=== PATIENT | female | born 1955 | race Caucasian/White ===

== ENCOUNTER 2018-07-23 08:33 | Emergency (ER) | payer OTHER ==
--- OUTSIDE RECORDS SUMMARY | 2018-07-23 08:34 | XMS REPORT ---
:1955 Author Organization eClinicalWorks Care Team Providers Name Role Phone Evelyn Sanches Provider Role Unavailable Allergies, Adverse Reactions, Alerts Substance Reaction Event Type PCN BREATHING DIFFICULTY Drug Allergy Problems Problem Type Condition Code Onset Dates Condition Status Assessment Pain in left hip M25.552 Active Assessment Anxiety F41.9 Active Assessment Depression, unspecified depression F32.9 Active type Assessment Other chronic pain G89.29 Active Problem Hepatitis C B19.20 Active Problem Menopausal state N95.1 Active Problem Anxiety F41.9 Active Problem Depression, unspecified depression F32.9 Active type Problem Lumbar radiculopathy, acute M54.16 Active Problem OCD (obsessive compulsive disorder) F42 Active Problem Other chronic pain G89.29 Active Medications Medication Code Code Instructions Start End Date Status Dosage System Date Paxil [facility] 87244448364 20 MG Orally Active 1 tablet in Once a day the morning Celebrex ND 72924070212 200 MG Orally January 20, Active 1 capsule Once a day 2018 with food Abilify [facility] [id number] 5 MG Orally Once April 25, Active 1 tablet a day 2017 Results No Known Results Summary Purpose eClinicalWorks Submission
[2018-07-23] MEDS ORDERED: HYDROCODONE/APAP 7.5/325 MG TAB ONE (09:10)
--- NOTE | 2018-07-23 09:59 | RAD REPORT ---
EXAM DESCRIPTION: RAD - Wrist Left 3 View - 07/23/2018 9:52 am CLINICAL HISTORY: Left wrist pain status post injury FINDINGS: A mildly displaced fracture involves the distal radial metaphysis. Avulsion fracture involves the ulnar styloid process. No dislocation is seen
--- NOTE | 2018-07-23 10:09 | ER ---
Nurse's Notes [facility] Name: Nancy Dwyer Age: 63 yrs Sex: Female : 1955 Arrival Date: 07/23/2018 Time: 08:37 Bed 14 Private MD: Kristen Sanches Diagnosis: Ulnar Styloid Avulsion fracture left wrist ;Distal radius fracture Presentation: 07/23 08:46 Presenting complaint: Patient states: "I slipped and fell and caught myself with my aa5 left wrist". Pt c/o left wrist pain. Negative LOC, negative head injury. Care prior to arrival: None. Mechanism of Injury: Fall from standing position. Trauma event details: Injury occurred in the [facility], Injury occurred: July 23, 2018. 08:46 Acuity: JAKE 3 aa5 08:46 Method Of Arrival: Ambulatory aa5 09:17 Transition of care: patient was not received from another setting of care. Onset of jl7 symptoms was July 23, 2018. Risk Assessment: Do you want to hurt yourself or someone else? Patient reports no desire to harm self or others. Initial Sepsis Screen: Does the patient meet any 2 criteria? No. Patient's initial sepsis screen is negative. Does the patient have a suspected source of infection? No. Patient's initial sepsis screen is negative. Triage Assessment: 09:17 General: Appears in no apparent distress. uncomfortable, Behavior is calm, cooperative, jl7 appropriate for age. Pain: Complains of pain in left wrist. Trauma Activation: Not Applicable Physician: ED Physician; Name: ; Notified At: ; Arrived At: Physician: General Surgeon; Name: ; Notified At: ; Arrived At: Physician: Radiology; Name: ; Notified At: ; Arrived At: Physician: Respiratory; Name: ; Notified At: ; Arrived At: Physician: Lab; Name: ; Notified At: ; Arrived At: Historical: - Allergies: 08:48 PENICILLINS; aa5 - PMHx: 08:48 None; aa5 - PSHx: 08:48 neck; Carpal Tunnel Repair; back; aa5 - Immunization history:: Adult Immunizations up to date. - Social history:: Smoking status: Patient/guardian denies using tobacco. - Ebola Screening: : No symptoms or risks identified at this time. Screenin:14 Abuse screen: Denies threats or abuse. Denies injuries from another. Nutritional jl7 screening: No deficits noted. Tuberculosis screening: No symptoms or risk factors identified. Fall Risk Fall in past 12 months (25 points). Total Vasquez Fall Scale indicates Low Risk Score (25-44 pts). Fall prevention measures have been instituted. Side Rails Up X 2 Placed close to Nursing Station Frequent Obs/Assesments occuring Family Present and informed to notify staff if they need to leave bedside As available Patient and Family Educated on Fall Prevention Program and strategies. Assessment: 09:14 General: Appears in no apparent distress. uncomfortable, Behavior is calm, cooperative, jl7 appropriate for age. Pain: Complains of pain in left wrist Pain does not radiate. Pain currently is 10 out of 10 on a pain scale. Quality of pain is described as. Neuro: Level of Consciousness is awake, alert, obeys commands, Oriented to person, place, time, situation. Cardiovascular: Patient's skin is warm and dry. Pulses are 3+ in left radial artery. Respiratory: Airway is patent Respiratory effort is even, unlabored, Respiratory pattern is regular, symmetrical. Derm: Skin is pink, warm \\T\\ dry. Musculoskeletal: Capillary refill < 3 seconds, in bilateral fingers. Range of motion: limited in left wrist. 10:00 Reassessment: Patient and/or family updated on plan of care and expected duration. Pain jl7 level reassessed. Patient is alert, oriented x 3, equal unlabored respirations, skin warm/dry/pink. Patient states symptoms have improved. Vital Signs: 09:00 BP 160 / 82; Pulse 73; Resp 16; Pulse Ox 98% ; Pain 10/10; jl7 10:00 BP 145 / 80; Pulse 70; Resp 16; Pulse Ox 100% ; Pain 2/10; jl7 ED Course: 08:37 Patient arrived in ED. mr 08:38 Kristen Sanches is Private Physician. mr 08:44 Mario Lloyd, DANIEL is Primary Nurse. jl7 08:45 Arm band placed on Patient placed in an exam room, on a stretcher. aa5 08:47 Triage completed. aa5 09:00 Guille Bee PA is PHCP. jr8 09:00 Rom Blank MD is Attending Physician. jr8 09:14 Patient has correct armband on for positive identification. Bed in low position. Call jl7 light in reach. Side rails up X 1. Pulse ox on. NIBP on. 09:52 XRAY Wrist LEFT 3 view In Process Unspecified. EDID 10:08 Andrey Higginbotham MD is Referral Physician. jr8 10:27 Orthoglass splint: Sugar tong splint applied on left arm. 5 10:36 No provider procedures requiring assistance completed. Patient did not have IV access jl7 during this emergency room visit. Administered Medications: 09:10 Drug: Adrian (7.5 mg-325 mg) 1 tabs Route: PO; jl7 09:45 Follow up: Response: No adverse reaction; Pain is decreased jl7 Outcome: 10:08 Discharge ordered by . jr8 10:36 Discharged to home ambulatory, with family. jl7 10:36 Condition: stable 10:36 Discharge instructions given to patient, family, Instructed on discharge instructions, follow up and referral plans. medication usage, Demonstrated understanding of instructions, follow-up care, medications, Prescriptions given X 1. 10:36 Patient left the ED. jl7 Signatures: Dispatcher [employer] Valarie Sin Audri, RN RN Guille Herr PA PA jr8 Martinez, Maria [facility] Mario Lloyd RN RN jl7
--- NOTE | 2018-07-23 10:09 | EDPHYS ---
Physician Documentation [facility] Name: Nancy Dwyer Age: 63 yrs Sex: Female : 1955 Arrival Date: 07/23/2018 Time: 08:37 Bed 14 Private MD: Kristen Sanches ED Physician Rom Blank HPI: 07/23 09:34 This 63 yrs old Female presents to ER via Ambulatory with complaints of Fall jr8 Injury. 09:34 Details of fall: The patient fell from an upright position, while standing. Onset: The jr8 symptoms/episode began/occurred acutely, today. Associated injuries: The patient sustained left wrist. Severity of symptoms: At their worst the symptoms were moderate, in the emergency department the symptoms are unchanged. The patient has not experienced similar symptoms in the past. The patient has not recently seen a physician. Stated that she slipped and fell landing on left wrist. Pain with decreased ROM and bruising now . Historical: - Allergies: 08:48 PENICILLINS; aa5 - PMHx: 08:48 None; aa5 - PSHx: 08:48 neck; Carpal Tunnel Repair; back; aa5 - Immunization history:: Adult Immunizations up to date. - Social history:: Smoking status: Patient/guardian denies using tobacco. - Ebola Screening: : No symptoms or risks identified at this time. ROS: 09:34 Eyes: Negative for injury, pain, redness, and discharge, ENT: Negative for injury, jr8 pain, and discharge, Neck: Negative for injury, pain, and swelling, Cardiovascular: Negative for chest pain, palpitations, and edema, Respiratory: Negative for shortness of breath, cough, wheezing, and pleuritic chest pain, Abdomen/GI: Negative for abdominal pain, nausea, vomiting, diarrhea, and constipation, Back: Negative for injury and pain, Skin: Negative for injury, rash, and discoloration, Neuro: Negative for headache, weakness, numbness, tingling, and seizure. 09:34 MS/extremity: Positive for decreased range of motion, ecchymosis, pain, swelling, tenderness, of the left wrist. Exam: 09:34 Head/Face: Normocephalic, atraumatic. Eyes: Pupils equal round and reactive to light, jr8 extra-ocular motions intact. Lids and lashes normal. Conjunctiva and sclera are non-icteric and not injected. Cornea within normal limits. Periorbital areas with no swelling, redness, or edema. ENT: Nares patent. No nasal discharge, no septal abnormalities noted. Tympanic membranes are normal and external auditory canals are clear. Oropharynx with no redness, swelling, or masses, exudates, or evidence of obstruction, uvula midline. Mucous membranes moist. Neck: Trachea midline, no thyromegaly or masses palpated, and no cervical lymphadenopathy. Supple, full range of motion without nuchal rigidity, or vertebral point tenderness. No Meningismus. Chest/axilla: Normal chest wall appearance and motion. Nontender with no deformity. No lesions are appreciated. Cardiovascular: Regular rate and rhythm with a normal S1 and S2. No gallops, murmurs, or rubs. Normal PMI, no JVD. No pulse deficits. Respiratory: Lungs have equal breath sounds bilaterally, clear to auscultation and percussion. No rales, rhonchi or wheezes noted. No increased work of breathing, no retractions or nasal flaring. Abdomen/GI: Soft, non-tender, with normal bowel sounds. No distension or tympany. No guarding or rebound. No evidence of tenderness throughout. Back: No spinal tenderness. No costovertebral tenderness. Full range of motion. Skin: Warm, dry with normal turgor. Normal color with no rashes, no lesions, and no evidence of cellulitis. Neuro: Awake and alert, GCS 15, oriented to person, place, time, and situation. Cranial nerves II-XII grossly intact. Motor strength 5/5 in all extremities. Sensory grossly intact. Cerebellar exam normal. Normal gait. 09:34 Musculoskeletal/extremity: Extremities: grossly normal except: noted in the left wrist: decreased ROM, ecchymosis, pain, swelling, tenderness, ROM: full active range of motion, limited passive range of motion, limited active range of motion due to pain, limited passive range of motion due to pain, Circulation is intact in all extremities. Sensation intact. Vital Signs: 09:00 BP 160 / 82; Pulse 73; Resp 16; Pulse Ox 98% ; Pain 10/10; jl7 10:00 BP 145 / 80; Pulse 70; Resp 16; Pulse Ox 100% ; Pain 2/10; jl7 Procedures: 10:07 Splinting: Splint applied to left wrist using Orthoglass splint, applied by nurse. jr8 Examined by me, post splint application: neurovascular intact, 2+ distal pulses palpable, brisk capillary refill noted. MDM: 09:00 Patient medically screened. jr8 10:07 Data reviewed: vital signs, nurses notes, radiologic studies, plain films, and as a jr8 result, I will discharge patient. Data interpreted: Pulse oximetry: on room air is 98 %. Interpretation: normal. Counseling: I had a detailed discussion with the patient and/or guardian regarding: the historical points, exam findings, and any diagnostic results supporting the discharge/admit diagnosis, radiology results, the need for outpatient follow up, a orthopedic surgeon, to return to the emergency department if symptoms worsen or persist or if there are any questions or concerns that arise at home. 07/23 09:04 Order name: XRAY Wrist LEFT 3 view; Complete Time: 10:05 jr8 07/23 10:06 Order name: Ulnar Gutter splint; Complete Time: 10:27 jr8 07/23 10:28 Order name: Sugar Tong Forearm Splint; Complete Time: 10:28 [facility] 07/23 10:35 Order name: Sling; Complete Time: 10:35 7 Administered Medications: 09:10 Drug: [place] (7.5 mg-325 mg) 1 tabs Route: PO; 7 09:45 Follow up: Response: No adverse reaction; Pain is decreased 7 Disposition: 07/23/18 10:08 Discharged to Home. Impression: Ulnar Styloid Avulsion fracture left wrist , Distal radius fracture . - Condition is Stable. - Discharge Instructions: Wrist Fracture Treated With Immobilization. - Prescriptions for Ibuprofen 800 mg Oral Tablet - take 1 tablet by ORAL route every 12 hours As needed take with food; 20 tablet. - Medication Reconciliation Form, Thank You Letter, Antibiotic Education, Prescription Opioid Use form. - Follow up: Andrey Higginbotham MD; When: 5 - 6 days; Reason: Recheck today's complaints, Continuance of care, Re-evaluation by your physician. - Problem is new. - Symptoms have improved. Addendum: 07/25/2018 07:48 Co-signature as Attending Physician, Rom Blank MD I agree with the assessment and w a plan of care. Signatures: Dispatcher [employer] Valencia Ashby RN RN aa5 Guille Bee PA PA jr8 Valarie Heard 5 Mario Lloyd, DANIEL RN jl7 Rom Blank MD MD wa Corrections: (The following items were deleted from the chart) 07/23 10:14 10:08 07/23/2018 10:08 Discharged to Home. Impression: Ulnar Styloid Avulsion fracture jr8 left wrist . Condition is Stable. Forms are Medication Reconciliation Form, Thank You Letter, Antibiotic Education, Prescription Opioid Use. Follow up: Andrey Higginbotham; When: 5 - 6 days; Reason: Recheck today's complaints, Continuance of care, Re-evaluation by your physician. Problem is new. Symptoms have improved. jr8 10:36 10:14 07/23/2018 10:08 Discharged to Home. Impression: Ulnar Styloid Avulsion fracture jl7 left wrist ; Distal radius fracture . Condition is Stable. Discharge Instructions: Wrist Fracture Treated With Immobilization. Prescriptions for Ibuprofen 800 mg Oral Tablet - take 1 tablet by ORAL route every 12 hours As needed take with food; 20 tablet. and Forms are Medication Reconciliation Form, Thank You Letter, Antibiotic Education, Prescription Opioid Use. Follow up: Andrey Higginbotham; When: 5 - 6 days; Reason: Recheck today's complaints, Continuance of care, Re-evaluation by your physician. Problem is new. Symptoms have improved. jr8
== END 2018-07-23 10:36 | disposition home or self-care (01) ==
LOC: ER 08:33
DX: S52.612A Displaced fracture of left ulna styloid process, initial encounter for closed fracture (principal); W01.0XXA Fall on same level from slipping, tripping and stumbling without subsequent striking against object, initial encounter; Y93.9 Activity, unspecified; Y92.9 Unspecified place or not applicable; Z88.0 Allergy status to penicillin
CPT/HCPCS: 99284

== ENCOUNTER 2019-10-11 13:51 | Emergency (ER) | payer OTHER ==
--- OUTSIDE RECORDS SUMMARY | 2019-10-11 13:53 | XMS REPORT ---
:1955 Author Organization eClinicalWorks Care Team Providers Name Role Phone Teodora Sanches Provider Role Unavailable Allergies No Known Allergies Problems Problem Type Condition Code Onset Dates Condition Status Problem Other chronic pain G89.29 Active Problem Menopausal state N95.1 Active Problem OCD (obsessive compulsive disorder) F42 Active Problem Encounter for general adult medical Z00.00 Active examination without abnormal findings Problem Encounter for gynecological Z01.419 Active examination without abnormal finding Problem Screening breast examination Z12.39 Active Problem Anxiety F41.9 Active Problem Hepatitis C B19.20 Active Problem Depression, unspecified depression F32.9 Active type Problem Lumbar radiculopathy, acute M54.16 Active Medications No Known Medications Results No Known Results Summary Purpose eClinicalWorks Submission
[2019-10-11] MEDS ORDERED: dexAMETHasone 10 MG/ML VIAL ONE (14:45)
[2019-10-11] MEDS ORDERED: KETOROLAC 30 MG/ML INJ ONE (14:45)
[2019-10-11] MEDS ORDERED: METHOCARBAMOL 1,000 MG in NA CHLORIDE 0.9% 100 ML IV ONE (15:00)
--- NOTE | 2019-10-11 15:12 | RAD REPORT ---
EXAM DESCRIPTION: RAD - Thoracic Spine Ap/Lat - 10/11/2019 3:03 pm CLINICAL HISTORY: Back pain FINDINGS: No fracture or dislocation The bones are osteoporotic Mild scoliosis Moderate spondylosis involves the thoracic spine consisting of disc space narrowing and osteophytes
--- NOTE | 2019-10-11 16:09 | ER ---
Nurse's Notes [facility] Name: Nancy Dwyer Age: 64 yrs Sex: Female : 1955 Arrival Date: 10/11/2019 Time: 13:53 Bed 17 Private MD: Diagnosis: Muscle spasm of back Presentation: 10/11 13:57 Presenting complaint: Mid back pain x 5 days. Denies injury. Transition of care: hb patient was not received from another setting of care. Onset of symptoms was October 07, 2019. Risk Assessment: Do you want to hurt yourself or someone else? Patient reports no desire to harm self or others. Care prior to arrival: Medication(s) given: Tylenol at 0600, ibuprofen at 0800. 13:57 Method Of Arrival: Ambulatory 13:57 Acuity: JAKE 4 hb 14:00 Initial Sepsis Screen: Does the patient meet any 2 criteria? No. Patient's initial bp sepsis screen is negative. Does the patient have a suspected source of infection? No. Patient's initial sepsis screen is negative. Triage Assessment: 14:00 General: Appears in no apparent distress. comfortable, Behavior is calm, cooperative, bp appropriate for age. Pain: Complains of pain in back. EENT: No deficits noted. Neuro: No deficits noted. Cardiovascular: No deficits noted. Respiratory: No deficits noted. GI: No signs and/or symptoms were reported involving the gastrointestinal system. : No signs and/or symptoms were reported regarding the genitourinary system. Derm: No deficits noted. Musculoskeletal: Circulation, motion, and sensation intact. Range of motion: intact in all extremities. Historical: - Allergies: 13:58 PENICILLINS; hb - PSHx: 13:58 neck; Carpal Tunnel Repair; back; hb - Immunization history:: Adult Immunizations up to date. - Social history:: Smoking status: Patient uses tobacco products, smokes one-half pack cigarettes per day. - Ebola Screening: : No symptoms or risks identified at this time. Screenin:29 Abuse screen: Denies threats or abuse. Denies injuries from another. Nutritional bp screening: No deficits noted. Tuberculosis screening: No symptoms or risk factors identified. Fall Risk None identified. Assessment: 14:00 General: SEE TRIAGE NOTE. Neuro: No deficits noted. bp 15:00 Reassessment: PT RETURNED FROM CT. bp 16:25 Reassessment: PT D/C HOME AMBULATORY WITH FAMILY, DX WITH MUSCLE SPASM. bp Vital Signs: 13:58 BP 136 / 84; Pulse 90; Resp 16; Temp 97.7; Pulse Ox 98% on R/A; Weight 63.5 kg; Height hb 5 ft. 8 in. (172.72 cm); Pain 10/10; 15:00 BP 113 / 83; Pulse 61; Resp 16; Pulse Ox 97% ; bp 16:26 BP 103 / 57; Pulse 61; Resp 16; Pulse Ox 95% ; bp 13:58 Body Mass Index 21.29 (63.50 kg, 172.72 cm) hb ED Course: 13:53 Patient arrived in ED. mr 13:58 Triage completed. hb 13:58 Arm band placed on. hb 14:22 Guille Bee PA is PHCP. jr8 14:22 Adams Galvez MD is Attending Physician. jr8 14:27 Jac Cheney, DANIEL is Primary Nurse. bp 14:29 Patient has correct armband on for positive identification. Bed in low position. Call bp light in reach. Side rails up X2. Adult w/ patient. 15:03 XRAY Thoracic Spine (Ap/lat) In Process Unspecified. EDMS 15:16 Inserted saline lock: 22 gauge in right antecubital area, using aseptic technique. bp 16:23 No provider procedures requiring assistance completed. IV discontinued, intact, bp bleeding controlled, No redness/swelling at site. Pressure dressing applied. Administered Medications: 15:00 Drug: Decadron - Dexamethasone 10 mg Route: IVP; Site: right antecubital; bp 16:21 Follow up: Response: Pain is decreased bp 15:00 Drug: TORadol - Ketorolac 15 mg Route: IVP; Site: right antecubital; bp 16:21 Follow up: Response: Pain is decreased bp 15:00 Drug: Robaxin 1 grams Route: IVPB; Infused Over: 1 hrs; Site: right antecubital; bp 16:27 Follow up: IV Status: Completed infusion; IV Intake: 100ml bp Intake: 16:27 IV: 100ml; Total: 100ml. bp Outcome: 16:08 Discharge ordered by . jr8 16:25 Discharged to home ambulatory, with family. bp 16:25 Condition: stable 16:25 Discharge instructions given to patient, Instructed on discharge instructions, follow up and referral plans. medication usage, Demonstrated understanding of instructions, follow-up care, medications, Prescriptions given X 3. 16:27 Patient left the ED. bp Signatures: Dispatcher [employer] SHRUTHISC AntonioSuzie RohitGuille PA PA jr8 Mandy Velazco, RN RN Jac Cheney RN RN bp
--- NOTE | 2019-10-11 16:09 | EDPHYS ---
Physician Documentation [facility] Name: Nancy Dwyer Age: 64 yrs Sex: Female : 1955 Arrival Date: 10/11/2019 Time: 13:53 Bed 17 Private MD: ED Physician Adams Galvez HPI: 10/11 15:06 This 64 yrs old Female presents to ER via Ambulatory with complaints of Back jr8 Pain. 15:06 The patient presents with pain that is acute. The symptoms are located in the left mid jr8 back. Onset: The symptoms/episode began/occurred acutely, 2 day(s) ago. The pain does not radiate. Associated signs and symptoms: The patient has no apparent associated signs or symptoms. The problem was sustained from twisting. Modifying factors: The patient symptoms are alleviated by nothing, the patient symptoms are aggravated by any movement. Severity of symptoms: At their worst the symptoms were moderate, in the emergency department the symptoms are unchanged. The patient has not recently seen a physician. 15:06 Stated that she pulled her back about 2 days ago. Unrelieved with rest and OTC jr8 medication. Has done this in past but with relief. Denies numbness, tingling, weakness, or saddle anesthesia . Historical: - Allergies: 13:58 PENICILLINS; hb - PSHx: 13:58 neck; Carpal Tunnel Repair; back; hb - Immunization history:: Adult Immunizations up to date. - Social history:: Smoking status: Patient uses tobacco products, smokes one-half pack cigarettes per day. - Ebola Screening: : No symptoms or risks identified at this time. ROS: 15:06 Eyes: Negative for injury, pain, redness, and discharge, ENT: Negative for injury, jr8 pain, and discharge, Neck: Negative for injury, pain, and swelling, Cardiovascular: Negative for chest pain, palpitations, and edema, Respiratory: Negative for shortness of breath, cough, wheezing, and pleuritic chest pain, Abdomen/GI: Negative for abdominal pain, nausea, vomiting, diarrhea, and constipation, MS/Extremity: Negative for injury and deformity, Skin: Negative for injury, rash, and discoloration, Neuro: Negative for headache, weakness, numbness, tingling, and seizure. 15:06 Back: Positive for pain at rest, pain with movement. Exam: 15:06 Eyes: Pupils equal round and reactive to light, extra-ocular motions intact. Lids and jr8 lashes normal. Conjunctiva and sclera are non-icteric and not injected. Cornea within normal limits. Periorbital areas with no swelling, redness, or edema. ENT: Nares patent. No nasal discharge, no septal abnormalities noted. Tympanic membranes are normal and external auditory canals are clear. Oropharynx with no redness, swelling, or masses, exudates, or evidence of obstruction, uvula midline. Mucous membranes moist. Neck: Trachea midline, no thyromegaly or masses palpated, and no cervical lymphadenopathy. Supple, full range of motion without nuchal rigidity, or vertebral point tenderness. No Meningismus. Chest/axilla: Normal chest wall appearance and motion. Nontender with no deformity. No lesions are appreciated. Cardiovascular: Regular rate and rhythm with a normal S1 and S2. No gallops, murmurs, or rubs. Normal PMI, no JVD. No pulse deficits. Respiratory: Lungs have equal breath sounds bilaterally, clear to auscultation and percussion. No rales, rhonchi or wheezes noted. No increased work of breathing, no retractions or nasal flaring. Abdomen/GI: Soft, non-tender, with normal bowel sounds. No distension or tympany. No guarding or rebound. No evidence of tenderness throughout. Skin: Warm, dry with normal turgor. Normal color with no rashes, no lesions, and no evidence of cellulitis. MS/ Extremity: Pulses equal, no cyanosis. Neurovascular intact. Full, normal range of motion. Neuro: Awake and alert, GCS 15, oriented to person, place, time, and situation. Cranial nerves II-XII grossly intact. Motor strength 5/5 in all extremities. Sensory grossly intact. Cerebellar exam normal. Normal gait. 15:06 Back: pain, that is moderate, of the left mid back, ROM is painful, normal spinal alignment noted, CVA tenderness, is absent, vertebral tenderness, is appreciated at T9, muscle spasm, is appreciated in the left low back and left mid back. Vital Signs: 13:58 BP 136 / 84; Pulse 90; Resp 16; Temp 97.7; Pulse Ox 98% on R/A; Weight 63.5 kg; Height hb 5 ft. 8 in. (172.72 cm); Pain 10/10; 15:00 BP 113 / 83; Pulse 61; Resp 16; Pulse Ox 97% ; bp 16:26 BP 103 / 57; Pulse 61; Resp 16; Pulse Ox 95% ; bp 13:58 Body Mass Index 21.29 (63.50 kg, 172.72 cm) hb MDM: 14:26 Patient medically screened. jr8 16:07 Data reviewed: vital signs, nurses notes, radiologic studies, plain films, and as a jr8 result, I will discharge patient. Data interpreted: Pulse oximetry: on room air is 97 %. Interpretation: normal. Counseling: I had a detailed discussion with the patient and/or guardian regarding: the historical points, exam findings, and any diagnostic results supporting the discharge/admit diagnosis, radiology results, the need for outpatient follow up, a family practitioner, to return to the emergency department if symptoms worsen or persist or if there are any questions or concerns that arise at home. Response to treatment: the patient's symptoms have markedly improved after treatment. 10/11 14:33 Order name: XRAY Thoracic Spine (Ap/lat); Complete Time: 15:23 jr8 10/11 14:33 Order name: IV; Complete Time: 15:17 jr8 Administered Medications: 15:00 Drug: Decadron - Dexamethasone 10 mg Route: IVP; Site: right antecubital; bp 16:21 Follow up: Response: Pain is decreased bp 15:00 Drug: TORadol - Ketorolac 15 mg Route: IVP; Site: right antecubital; bp 16:21 Follow up: Response: Pain is decreased bp 15:00 Drug: Robaxin 1 grams Route: IVPB; Infused Over: 1 hrs; Site: right antecubital; bp 16:27 Follow up: IV Status: Completed infusion; IV Intake: 100ml bp Disposition: 19:04 Co-signature as Attending Physician, Adams Galvez MD Signing chart for administrative ps1 purposes. Available for consultation in ED. . Disposition: 10/11/19 16:08 Discharged to Home. Impression: Muscle spasm of back. - Condition is Stable. - Discharge Instructions: Muscle Cramps and Spasms, Back Exercises, [id number], Heat Therapy. - Prescriptions for meloxicam 15 mg Oral tablet - take 1 tablet by ORAL route once daily As needed; 12 tablet. Robaxin 500 mg Oral Tablet - take 2 tablet by ORAL route every 6 hours As needed; 40 tablet. Medrol (Nazario) 4 mg Oral Tablets, Dose Pack - take 1 tablet by ORAL route as directed - follow package instructions; 1 packet. - Medication Reconciliation Form, Thank You Letter, Antibiotic Education, Prescription Opioid Use form. - Follow up: Private Physician; When: 2 - 3 days; Reason: Recheck today's complaints, Continuance of care, Re-evaluation by your physician. - Problem is new. - Symptoms have improved. Signatures: Dispatcher [employer] EDMS Guille Bee PA PA jr8 Mandy Velazco, RN RN hb Jac Cheney RN RN bp Adams Galvez MD MD ps1 Corrections: (The following items were deleted from the chart) 16:27 16:08 10/11/2019 16:08 Discharged to Home. Impression: Muscle spasm of back. Condition bp is Stable. Forms are Medication Reconciliation Form, Thank You Letter, Antibiotic Education, Prescription Opioid Use. Follow up: Private Physician; When: 2 - 3 days; Reason: Recheck today's complaints, Continuance of care, Re-evaluation by your physician. Problem is new. Symptoms have improved. jr8
[2019-10-11 17:16] VITALS: TEMP 97.7
[2019-10-11 17:18] VITALS: BP 103/57; O2SAT 95
== END 2019-10-11 16:27 | disposition home or self-care (01) ==
LOC: ER 13:51
DX: M62.830 Muscle spasm of back (principal); Z88.0 Allergy status to penicillin; F17.210 Nicotine dependence, cigarettes, uncomplicated
CPT/HCPCS: 96365; 72070; 96375; 99284; J1100; J2800

== ENCOUNTER 2021-12-24 07:41 | Day surgery (SDC) | payer OTHER ==
[2021-12-22 09:23] LABS: Potassium 4.5 mmol/L (3.5-5.1)
[2021-12-24] MEDS ORDERED: Ringers Lactate 1,000 ML IV ONE (07:46)
--- NOTE | 2021-12-24 09:17 | ENDO RPT ---
[address], [address] COLONOSCOPY PROCEDURE REPORT EXAM DATE: 12/24/2021 PATIENT NAME: Nancy Dwyer MR #: [id number] BIRTHDATE: 1955 ATTENDING: Jamison Luna DR STATUS: outpatient DIRECTOR LOSS PREVENTION: Kiersten Richards RN INDICATIONS: The patient is a 66 yr old Female here for a colonoscopy due to colon cancer screening PROCEDURE PERFORMED: Screening Colonoscopy and Colonoscopy MEDICATIONS: Per Anesthesia. ESTIMATED BLOOD LOSS: None CONSENT: The patient understands the risks and benefits of the procedure and understands that these risks include, but are not limited to: sedation, allergic reaction, infection, perforation and/or bleeding. Alternative means of evaluation and treatment include, among others: physical exam, x-rays, and/or surgical intervention. The patient elects to proceed with this endoscopic procedure. DESCRIPTION OF PROCEDURE: During intra-op preparation period all mechanical medical equipment was checked for proper function. Hand hygiene and appropriate measures for infection prevention was taken. Procedure, possible complications, alternatives including, but not limited to possibility of bleeding, perforation, tear, infection, sepsis, need for surgery, need for blood transfusion, were explained to the patient. After the risks, benefits and alternatives of the procedure were thoroughly explained, Informed consent was verified, confirmed and timeout was successfully executed by the treatment team. The patient was placed in the left lateral position. A digital rectal exam was performed and revealed internal hemorrhoids. After appropriate level of anesthesia, the scope was passed. The EC-[id number] ([id number]) endoscope was introduced through the anus and advanced to the cecum, which was identified by both the appendix and ileocecal valve. The quality of the prep was fair. The instrument was then slowly withdrawn as the colon was fully examined. Scope withdrawal time was 10 minutes. COLON FINDINGS: Small internal hemorrhoids were found. The colon mucosa was otherwise normal. Retroflexed views revealed no abnormalities. The scope was then completely withdrawn from the patient and the procedure terminated. ADVERSE EVENTS: There were no complications. IMPRESSIONS: 1. Small internal hemorrhoids 2. The colon mucosa was otherwise normal RECOMMENDATIONS: 1. avoid NSAIDS for 2 weeks 2. fiber rich diet 3. yearly hemoccult starting in 4 years 4. yearly hemoquant 5. hemorrhoidal hygiene RECALL: Return in 10 year(s) for Colonoscopy. Fecal DNA Test to be done in [address] eSigned: Jamison Luna DR 12/24/2021 9:16 AM cc: CPT CODES: ICD9 CODES: PATIENT NAME: Nancy Dwyer MR#: [id number]
[2021-12-24 10:12] VITALS: TEMP 97.6
[2021-12-24 10:14] VITALS: BP 119/75; O2SAT 99
== END 2021-12-24 09:35 | disposition home or self-care (01) ==
LOC: OR 07:41
PROVIDERS: ATTEND Surgery
PROC: 0DJD8ZZ Inspection of Lower Intestinal Tract, Via Natural or Artificial Opening Endoscopic (ICD-10-PCS; principal; 2021-12-24 08:30)
DX: Z12.11 Encounter for screening for malignant neoplasm of colon (principal); K64.8 Other hemorrhoids; Z20.822 Contact with and (suspected) exposure to COVID-19
CPT/HCPCS: 80048; 36415; U0003; J7120; G0121

== ENCOUNTER 2022-02-10 05:37 | Observation (INO) | payer OTHER ==
--- NOTE | 2022-02-06 10:27 | RAD REPORT ---
EXAM DESCRIPTION: Harvey Sharpe (2 Views)02/06/2022 10:14 am CLINICAL HISTORY: Pre op pending hip replacement COMPARISON: 2015 FINDINGS: Lungs are moderately hyperaerated. The lungs appear clear of acute infiltrate. The heart is normal size IMPRESSION: COPD without visualization of an acute abnormality
[2022-02-06 10:39] LABS: Urine Appearance CLEAR (Clear); Urine Bilirubin NEGATIVE (Negative); Urine Color YELLOW (Yellow); Urine Glucose NEGATIVE (Negative); Urine Specific Gravity 1.015 (1.005-1.030)
[2022-02-06 10:40] LABS: Urine Blood NEGATIVE (Negative); Urine Microscopic Reflex ORDER UMIC; Urine Protein NEGATIVE (Negative); Urine Urobilinogen 0.2 mg/dL (0.2-1.0)
[2022-02-06 10:48] LABS: Bilirubin Total 0.5 mg/dL (0.2-1.0); Potassium 4.3 mmol/L (3.5-5.1); Protein, Total 7.9 g/dL (6.4-8.2)
[2022-02-06 10:54] LABS: Hematocrit 44.6 % (36.0-45.0); Lymphocytes % 28.9 % (15.3-44.8); MPV 8.8 fL (7.6-11.3); RBC Red Blood Cell Count 4.91 M/uL (3.86-4.86)
[2022-02-06 11:11] LABS: Urine Bacteria <20 /HPF (<20); Urine RBC NONE SEEN /HPF (NONE SEEN)
[2022-02-06 11:48] LABS: Protime INR 0.97
--- NOTE | 2022-02-09 11:21 | EKG ---
Test Date: 2022-02-06 Test Time: 08:51:05 Television Tube Inspector: CED MEASUREMENT RESULTS: Intervals: Rate: 54 DE: 200 QRSD: 72 QT: 424 QTc: 402 Alloway: P: 67 DE: 200 QRS: 27 T: 49 INTERPRETIVE STATEMENTS: Sinus bradycardia Possible Left atrial enlargement Septal infarct, age undetermined Abnormal ECG No previous ECG available for comparison Electronically Signed On 02-09-22 11:13:40 CDT by Ton Hearn
[2022-02-10] MEDS ORDERED: Ringers Lactate 1,000 ML IV ONE (05:45)
[2022-02-10] MEDS ORDERED: CLINDAMYCIN 900MG/D5W 900 MG/50 ML IVPB IV ONE (05:46)
[2022-02-10] MEDS ORDERED: dexAMETHasone 10 MG/ML VIAL ONE ×2 (05:58→06:08)
[2022-02-10] MEDS ORDERED: BUPIVACAINE 0.75% (PF) 2 ML SP ONE (05:59)
[2022-02-10] MEDS ORDERED: FENTANYL CITR 100 MCG/2 ML ONE (05:59)
[2022-02-10] MEDS ORDERED: MIDAZOLAM HCL 2 MG/2 ML INJ ONE (05:59)
[2022-02-10] MEDS ORDERED: ROPLVACAINE HCL 40 ML ONE (05:59)
[2022-02-10] MEDS ORDERED: KETOROLAC 30 MG/ML INJ ONE (06:08)
[2022-02-10] MEDS ORDERED: propofoL 200 MG/20 ML VIAL IV ONE (06:08)
[2022-02-10] MEDS ORDERED: LIDOCAINE 2% MPF 5 ML VIAL ONE (06:08)
[2022-02-10] MEDS ORDERED: LIDOCAINE 1% MPF 30 ML VIAL ONE (06:10)
[2022-02-10] MEDS ORDERED: ONDANSETRON 4 MG/2 ML VIAL ONE (06:10)
[2022-02-10] MEDS ORDERED: CELECOXIB 100 MG CAPSULE ONE (06:11)
[2022-02-10] MEDS ORDERED: GABAPENTIN 100 MG CAP ONE (06:12)
[2022-02-10] MEDS ORDERED: Phenylephrine HCl 10 MG/ML 1 ML VIAL ONE (06:12)
[2022-02-10] MEDS ORDERED: Oxycodone HCl/Acetaminophen 1 TAB TAB ONE (06:12)
[2022-02-10] MEDS ORDERED: ACETAMINOPHEN 500 MG TAB ONE (06:13)
[2022-02-10] MEDS ORDERED: SODIUM BICARB 50 MEQ/50ML VIAL ONE (06:34)
[2022-02-10] MEDS ORDERED: TRANEXAMIC ACID 1,000 MG in NA CHLORIDE 0.9% 50 ML IV SCH (08:00)
--- NOTE | 2022-02-10 09:06 | RAD REPORT ---
EXAM DESCRIPTION: RAD - Hip Right 1 View - 02/10/2022 8:50 am CLINICAL HISTORY: Hip surgery FINDINGS: Intraoperative x-ray demonstrates hip prosthesis in place.
--- NOTE | 2022-02-10 09:22 | P.BOP ---
Preoperative diagnosis: right hip arthritis Postoperative diagnosis: same Primary procedure: right total hip arthoplasty Estimated blood loss: 100 ccs Anesthesia: General Complications: None Transferred to: Recovery Room Condition: Good
[2022-02-10] MEDS ORDERED: ONDANSETRON 4 MG/2 ML VIAL IV PRN (09:23)
[2022-02-10] MEDS ORDERED: DOCUSATE NA 100 MG CAP PO PRN (09:23)
--- NOTE | 2022-02-10 09:57 | OP ---
Date of Procedure: 02/10/2022 Surgeon: Andrey Higginbotham MD Preoperative Diagnosis: Right hip arthritis. Postoperative Diagnosis: Right hip arthritis. Procedure: Right total hip arthroplasty using the [place] Trident and Accolade system. Estimated Blood Loss: 100 cc. Complications: No complications. Pathology Specimens: No pathology specimens sent. Indication For Operation: Ms. Dwyer is a 66-year-old female, who has x-rays demonstrating arthritic changes. These appeared to be moderate; however, the patient has debilitating pain with loss of rang e of motion of the hip including internal and external rotation. This continues despite conservative measures, and risks, benefits, and alternatives to total hip arthroplasty were discussed with her. She states she understands things as presented and wished to proceed. Description Of Procedure: The patient was taken to the operating room and placed in supine position. General anesthesia was obtained by the staff. After a spinal had been placed, the patient was then rolled left side down and the right lower extremity was then prepped and draped in usual sterile fas hion for arthroplasty. A standard posterolateral incision was then taken down carefully through skin and soft tissues. Meticulous hemostasis being maintained using Bovie electrocautery. This leads do wn to the fascia. A small stab was made in the fascia and the gluteal tendon was palpated to ensure correct position. The fascial incision then carried up until the gluteus asm fibers were encount ered. They were then split with a finger posteriorly. The sciatic nerve was then palpated and prote cted and Charnley was placed. Some of the bursa and fat were removed to allow for excellent visualiz ation of the external rotators and these were taken down along with the capsule and tagged for later repair. The hip was then dislocated and a standard neck cut was then performed. Acetabular retracto rs were carefully placed and the labrum was removed. All soft tissue was removed from the acetabulum . After this, it was then sequentially reamed up to a size 51 with good bleeding bone throughout. T he acetabulum was then put in place. After this, attention was then turned to the femur. The box cu tter was used to lateralize and this was followed by hand straightener and sequential broaching to a size 5 . After this, x-rays brought in demonstrates the acetabulum could go down a little bit further, but otherwise looked in good position. The stem was appropriately sized. Some additional impaction was done to the acetabulum without changing its orientation and the wire was placed. After this, it was then trialed with a standard ball, which appeared to be somewhat long. It was then trialed with a -4 , which appeared to have good extension. There was no Shuck. It is stable to full flexion, full add uction, and internal rotation to at least 45 degrees. This is the final construct. The trial stem w as then removed and final stem was then placed. It was again trialed and found to be appropriate for this sized ball. The final ball was then placed. It is relocated and checked. This found to be st able to full flexion, adduction, and internal rotation to 45 degrees with good extension and no Shuck . The wound was then copiously irrigated. External rotators were repaired back to the greater troch anter via bone tunnels. It was again irrigated and the fascia was closed back using Vicryl sutures i n a watertight fashion. It was again irrigated and the skin was closed using 2-0 Vicryl sutures foll owed by josie. The patient was then placed in Aquacel dressing, awakened, and taken to recovery ro om in good condition. No complications. SE/MODL Voice ID: [id number] Report ID: [id number]
--- OUTSIDE RECORDS SUMMARY | 2022-02-10 10:13 | XMS REPORT | Continuity of Care Document ---
:1955 Author Organization [facility] t Address [address] [place] [address] [address] [place] [address] Care Team Providers Name Role Phone Verónica Attending Clinician Unavailable Problems This patient has no known problems. Allergies, Adverse Reactions, Alerts Allergy Allergy Status Severity Reaction(s) Onset Inactive Treating Comm ents Source Name Type Date Date Clinician PCN Adverse Active BREATHING [facility] Reaction DIFFICULTY [facility] Medications Ordered Filled Start Stop Current Ordering Indication Dosage Frequency Signature Comments Components Source Medication Medication Date Date Medication? Clinician (SIG) Name Name Kem Brownlee Yes Teodora [address] 6[facility]18 Saline [facility] 00 [facility]ics Paxil Paxil Yes Teodora [address] [facility] Saline in the [facility] - morning [facility]ics Ativan Ativan Yes Teodora [address] [facility] Saline as needed [facility]ics Celebrex Celebrex Yes Teodora [address] Saline with food [facility] Clinics Procedures This patient has no known procedures. Encounters Start End Encounter Admission Attending Care Care Encounter Source Date/Time Date/Time Type Type Clinicians Facility Department ID 2022-01-29 Outpatient YUNIOR Sanches [facility] [id number] [facility] 13:40:01 Teodora [facility] 2022-01-26 Out[facility] [id number] [facility] 14:21:01 [facility]od[facility] [id number] [facility] 2021-12-03 Outpatient Verónica, [facility]LMLC [facility] 14:34:59 [facility] 2021-12-03 Outpatient Verónica [facility] 13[facility]38:25 [facility] [id number] [facility] 2021-12-03 Outpatient Verónica [facility] 12:21:54 [facility] [id number] [facility] 2022-02-09 2022-02-09 ambulatory [facility] [id number] [facility] 2022-01-29 2022-01-29 ambulatory [facility] [id number] [facility] 2022-01-14 2022-01-14 ambulatory [facility] [id number] [facility] 2021-11-21 2021-11-21 ambulatory [facility] [id number] [facility] 2021-11-20 2021-11-20 ambulatory [facility] [id number] [facility] 2020-10-18 2020-10-18 Outpatient [facility] [id number] [facility] 2020-04-25 2020-04-25 [facility] [id number] [facility] 10[facility]46:00 10:46:00 [facility] ent Clin[facility] 2020-04-18 2020-04-18 [facility] [id number] [address] 09:40:00 09:40:00 [facility] Clin[facility] 2020-04-08 2020-04-08 [facility] [id number] 10:29:00 10:29:00 [facility] Outpat[facility] ent Clinics 2019-08-08 2019-08-08 [facility] [id number] [address] 15:29:00 15:29:00 [facility] Outpat[facility] ent Clinics 2019-07-12 2019-07-12 [facility] [id number] [address] 13[facility]56:00 13:56:00 t [facility] Outpat[facility] ent Clinics 2019-07-07 2019-07-07 [facility] [id number] 14:47:00 14:47:00 [facility] Outpati ent Clinics 2019-06-27 2019-06-27 [facility] [id number] [address] 09:15:00 09:15:00 [facility] Out[facility] ent Clin[facility] 2019-06-12 2019-06-12 [facility] [id number] 10:20:00 10:20:00 [facility] Out[facility] Clin[facility] 2018-04-25 2018-04-25 [facility] [id number] 15:30:00 15:30:00 [facility] Outpat[facility] ent Clinics Results This patient has no known results.
[2022-02-10] MEDS: HYDROCODONE/APAP 7.5/325 MG TAB PO PRN ×3 (11:29→18:48)
[2022-02-10 12:41] VITALS: BMI 19.8
[2022-02-10] MEDS: GABAPENTIN 100 MG CAP PO PRN ×2 (14:46→21:58)
[2022-02-11] MEDS: HYDROCODONE/APAP 7.5/325 MG TAB PO PRN ×4 (02:15→14:27)
[2022-02-11] MEDS ORDERED: ENOXAPARIN 40 MG/0.4 ML SQ SCH (09:00)
[2022-02-11] MEDS ORDERED: PARoxetine HCL 10 MG TAB PO SCH (09:00)
[2022-02-11 12:28] VITALS: BP 108/56; TEMP 98.1
[2022-02-11] MEDS: GABAPENTIN 100 MG CAP PO PRN (12:28)
[2022-02-11 13:08] VITALS: O2SAT 94
--- NOTE | 2022-02-11 13:18 | P.CNS ---
Date of Consult: 02/10/22 Reason for Consult: Medical management Chief Complaint: Total hip arthroplasty History of Present Illness: Patient is a 66-year-old female came to the hospital with total hip arthroplasty. Patient is a history of being on antidepressants. She is otherwise healthy and denies any complaints. She should do very well in the perioperative period. Patient denies any significant medical problems. Allergies Penicillins Allergy (Verified 02/06/22 09:25) Anaphylaxis Home Medications: Celecoxib [Celebrex] 200 mg PO DAILY 12/22/21 Multivitamin 1 each PO DAILY 12/22/21 Paroxetine HCl [Paxil] 20 mg PO DAILY 12/22/21 Turmeric 400 mg PO DAILY 12/22/21 Gabapentin [Neurontin*] 200 mg PO BIDP PRN 02/06/22 Hydrocodone 7.5/APAP 325 [[place] 7.5/325 mg*] 1 tab PO Q6HP PRN #30 tab 02/11/22 Rivaroxaban [Xarelto] 10 mg PO DAILY #20 tablet 02/11/22 - Past Medical/Surgical History Diabetic: No -: anxiety -: COPD -: Fibromyalgia -: hypotension -: colonoscopy -: bilateral carpal cooper -: ACDF -: calcium buildup removed from back -: tubal 1985 - Family History Father History Unknown: Yes Mother History Unknown: Yes - Social History Smoking Status: Current every day smoker Alcohol use: Yes CD- Drugs: No Caffeine use: Yes Place of Residence: Home Review of Systems 10-point ROS is otherwise unremarkable Physical Examination Temp Pulse Resp BP Pulse Ox 98.1 F 60 16 108/56 L 95 02/11/22 12:00 02/11/22 12:00 02/11/22 12:00 02/11/22 12:00 02/11/22 12:00 General: Alert, In no apparent distress, Oriented x3 HEENT: Atraumatic, PERRLA, Mucous membr. moist/pink, EOMI, Sclerae nonicteric Neck: Supple, 2+ carotid pulse no bruit, No LAD, Without JVD or thyroid abnormality Respiratory: Clear to auscultation bilaterally, Normal air movement Cardiovascular: Regular rate/rhythm, Normal S1 S2 Gastrointestinal: Normal bowel sounds, No tenderness Musculoskeletal: No tenderness Integumentary: No rashes Neurological: Normal gait, Normal speech, Normal tone, Normal affect Lymphatics: No axilla or inguinal lymphadenopathy Laboratory Data (last 24 hrs) 02/11/22 05:14: Hgb 11.7 L, Hct 34.0 L 02/10/22 16:16: Hgb 12.4, Hct 36.0 - Problems (1) S/P total hip arthroplasty Current Visit: Yes Status: Acute Conclusions/ Impression: Farias plan: 1. Pain control 2. Anticoagulation 3. Physical therapy 4. Arrange for outpatient physical therapy. Critical Care: No Time Spent Managing Pts care (In Minutes): 45
--- NOTE | 2022-02-11 13:18 | P.DS ---
Discharge Date: 02/11/22 Disposition: ROUTINE DISCHARGE Discharge Condition: GOOD Reason for Admission: Total hip arthroplasty - Problems (1) S/P total hip arthroplasty Current Visit: Yes Status: Acute Brief History of Present Illness: Patient is a 66-year-old female came to the hospital with total hip arthroplasty. Patient is a history of being on antidepressants. She is o therwise healthy and denies any complaints. She should do very well in the perioperative period. Patient denies any significant medical problems. Vital Signs/Physical Exam: Temp Pulse Resp BP Pulse Ox 98.1 F 60 16 108/56 L 95 02/11/22 12:00 02/11/22 12:00 02/11/22 12:00 02/11/22 12:00 02/11/22 12:00 Laboratory Data at Discharge: WBC 6.8 K/uL (4.3-10.9) 02/06/22 10:00 Hgb 11.7 g/dL (12.0-15.0) L 02/11/22 05:14 Hct 34.0 % (36.0-45.0) L 02/11/22 05:14 Plt Count 290 K/uL (152-406) 02/06/22 10:00 PT 10.7 SECONDS (9.5-12.5) 02/06/22 09:55 INR 0.97 02/06/22 09:55 APTT 31.4 SECONDS (24.3-36.9) 02/06/22 09:55 Sodium 140 mmol/L (136-145) 02/06/22 09:55 Potassium 4.3 mmol/L (3.5-5.1) 02/06/22 09:55 BUN 11 mg/dL (7-18) 02/06/22 09:55 Creatinine 0.82 mg/dL (0.55-1.3) 02/06/22 09:55 Glucose 105 mg/dL (74-106) 02/06/22 09:55 Total Bilirubin 0.5 mg/dL (0.2-1.0) 02/06/22 09:55 AST 6 U/L (15-37) L 02/06/22 09:55 ALT 25 U/L (12-78) 02/06/22 09:55 Alkaline Phosphatase 69 U/L (45-117) 02/06/22 09:55 Home Medications: Celecoxib [Celebrex] 200 mg PO DAILY 12/22/21 Multivitamin 1 each PO DAILY 12/22/21 Paroxetine HCl [Paxil] 20 mg PO DAILY 12/22/21 Turmeric 400 mg PO DAILY 12/22/21 Gabapentin [Neurontin*] 200 mg PO BIDP PRN 02/06/22 Hydrocodone 7.5/APAP 325 [[place] 7.5/325 mg*] 1 tab PO Q6HP PRN #30 tab 02/11/22 Rivaroxaban [Xarelto] 10 mg PO DAILY #20 tablet 02/11/22 New Medications: Hydrocodone 7.5/APAP 325 [[place] 7.5/325 mg*] 1 tab PO Q6HP PRN #30 tab PRN Reason: Pain Scale 5-7 (Moderate) Rivaroxaban [Xarelto] 10 mg PO DAILY #20 tablet Physician Discharge Instructions: -DC IV and DC home -Follow-up with PCP in 1 to 2 weeks -Follow-up with orthopedics in 1 week -Please call Dr. Trevizo at [phone] if any questions regarding hospital stay -Please call nursing station at [phone] if any nursing or medication questions -Return to the emergency room if symptoms worsen Diet: Regular Activity: Fall precautions Followup: Rl Louie MD [Primary Care Provider] -
== END 2022-02-11 14:43 | disposition home health service (06) ==
LOC: OR 05:37 → 2ND 10:10
PROVIDERS: ADMIT Orthopaedic Surgery; ATTEND Orthopaedic Surgery
PROC: 0SR90JA Replacement of Right Hip Joint with Synthetic Substitute, Uncemented, Open Approach (ICD-10-PCS; principal; 2022-02-10 07:00)
DX: M16.11 Unilateral primary osteoarthritis, right hip (principal); M79.7 Fibromyalgia; J44.9 Chronic obstructive pulmonary disease, unspecified; F41.9 Anxiety disorder, unspecified; Z88.0 Allergy status to penicillin; F17.210 Nicotine dependence, cigarettes, uncomplicated; Z79.01 Long term (current) use of anticoagulants; Z20.822 Contact with and (suspected) exposure to COVID-19
CPT/HCPCS: 93005; 87088; 85025; 87086; 36415 ×2; 86900; 86850; 85610; 86901; 88304; 88311; 85730; 85018 ×3; 85014 ×3; 80053; 71046; 73501; 97110; 97116 ×2; 97161; 27130; U0003; J2704; J2370; J1650; J2250; J3010; J1100 ×2; J2795; J7120; J2405 ×2; G0379; G0378 ×2; 81003; 81015

== ENCOUNTER → 2023-11-20 | Emergency (ER) | payer OTHER ==
[~2023-11-20] MED LIST: HYDROCODONE/APAP 5/325 MG TAB ONE; IBUPROFEN 400 MG TAB ONE; LIDOCAINE 2% MPF 5 ML VIAL ONE; LIDOCAINE 2% W/EPI 1:200,000 MPF 20 ML VIAL IM ONE; TDAP (DIPHTH,PERTUSS(ACELL),TET VAC) 0.5 ML VIAL IMVAC ONE
--- OUTSIDE RECORDS SUMMARY | 2023-11-20 18:45 | XMS REPORT | Continuity of Care Document ---
Author Name Unknown Address [address] [facility] 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 Problems Condition Name Condition Details Condition Category Status Onset Date Resolution Date Last Treatment Date Treating Clinician Comments Source [id number] Status post total replacemen t of right hip Problem Active [facility] [id number] Lumbar pain Problem Active [facility] [id number] Pain of left hip joint Problem Active [facility] Lumbar radiculopa thy Lumbar radiculopa thy, acute Problem Active [facility] [id number] Lipid disorder Problem Active [facility] [id number] Other chronic pain Problem Active [facility] [id number] Depression , unspecifie d depression type Problem Active [facility] Hepatitis C Hepatitis C Problem Active [facility] Anxiety Anxiety Problem Active [facility] [id number] Encounter for gynecologi art examinatio n without abnormal finding Problem Active [facility] [id number] Pain of right hip joint Problem Active [facility] Menopausal state Menopausal state Problem Active [facility] [id number] Primary osteoarthr itis of right hip Problem Active [facility] Obsessive- compulsive disorder OCD (obsessive compulsive disorder) Problem Active [facility] [id number] Fibromyalg ia Problem Active [facility] History of iron deficiency anemia History of iron deficiency anemia Problem Active [facility] Allergies, Adverse Reactions, Alerts Allergy Name Allergy Type Status Severity Reaction(s) Onset Date Inactive Date Treating Clinician Comments Source 0 Drug allergy Active BREATHING DIFFICULTY [facility] Social History Social Habit Start Date Stop Date Quantity Comments Source History of Tobacco Use Current Smoker [facility] Sex Assigned At [facility] Smoking Status Start Date Stop Date Source Current Smoker 2022-05-26 00:00:00 [facility] Former Smoker 2022-04-07 00:00:00 2022-04-07 00:00:00 [facility] Medications Ordered Medication Name Filled Medication Name Start Date Stop Date Current Medication? Ordering Clinician Indication Dosage Frequency Signature (SIG) Comments Components Source HYDROcodone -Acetaminop hen 5-325 MG HYDROcodone -Acetaminop hen 5-325 MG 2021- 4- 00:00: 00 No 1{table t_as_ne eded} QID HYDROcodon e-Acetamin ophen 5-325 MG HYDROcodone -Acetaminop hen 5-325 MG HYDROcodone -Acetaminop hen 5-325 MG 2021-0 4-15 00:00: 00 No 1{table t_as_ne eded} QID HYDROcodon e-Acetamin ophen 5-325 MG HYDROcodone -Acetaminop hen 5-325 MG HYDROcodone -Acetaminop hen 5-325 MG 2021-0 4-15 00:00: 00 No 1{table t_as_ne eded} QID HYDROcodon e-Acetamin ophen 5-325 MG HYDROcodone -Acetaminop hen 5-325 MG HYDROcodone -Acetaminop hen 5-325 MG 2021- 4-15 00:00: 00 No 1{table t_as_ne eded} QID HYDROcodon e-Acetamin ophen 5-325 MG HYDROcodone -Acetaminop hen 5-325 MG HYDROcodone -Acetaminop hen 5-325 MG 2022-0 4-15 00:00: 00 No 1{table t_as_ne eded} QID HYDROcodon e-Acetamin ophen 5-325 MG HYDROcodone -Acetaminop hen 5-325 MG HYDROcodone -Acetaminop hen 5-325 MG 2022-0 4-15 00:00: 00 No 1{table t_as_ne eded} QID HYDROcodon e-Acetamin ophen 5-325 MG Eliquis 5 MG Eliquis 5 MG 2022-0 4-06 00:00: 00 No Eliquis 5 MG Eliquis 5 MG Eliquis 5 MG 2022-0 4-06 00:00: 00 No Eliquis 5 MG Eliquis 5 MG Eliquis 5 MG 2022-0 4-06 00:00: 00 No Eliquis 5 MG Eliquis 5 MG Eliquis 5 MG 2022-0 4-06 00:00: 00 No Eliquis 5 MG Eliquis 5 MG Eliquis 5 MG 2022-0 4-06 00:00: 00 No Eliquis 5 MG Eliquis 5 MG Eliquis 5 MG 2022-0 4-06 00:00: 00 No Eliquis 5 MG Eliquis 5 MG Eliquis 5 MG 2022-0 4-06 00:00: 00 No Eliquis 5 MG Eliquis 5 MG Eliquis 5 MG 2022-0 4-06 00:00: 00 No Eliquis 5 MG Eliquis 5 MG Eliquis 5 MG 2022-0 4-06 00:00: 00 No Eliquis 5 MG HYDROcodone -Acetaminop hen 7.5-325 MG HYDROcodone -Acetaminop hen 7.5-325 MG 2022-0 4-05 00:00: 00 No 1{table t_as_ne eded} HYDROcodon e-Acetamin ophen 7.5-325 MG HYDROcodone -Acetaminop hen 7.5-325 MG HYDROcodone -Acetaminop hen 7.5-325 MG 2022-0 4-05 00:00: 00 No 1{table t_as_ne eded} HYDROcodon e-Acetamin ophen 7.5-325 MG HYDROcodone -Acetaminop hen 7.5-325 MG HYDROcodone -Acetaminop hen 7.5-325 MG 2022-0 4-05 00:00: 00 No 1{table t_as_ne eded} HYDROcodon e-Acetamin ophen 7.5-325 MG HYDROcodone -Acetaminop hen 7.5-325 MG HYDROcodone -Acetaminop hen 7.5-325 MG 2022-0 4-05 00:00: 00 No 1{table t_as_ne eded} HYDROcodon e-Acetamin ophen 7.5-325 MG HYDROcodone -Acetaminop hen 7.5-325 MG HYDROcodone -Acetaminop hen 7.5-325 MG 2022-0 4-05 00:00: 00 No 1{table t_as_ne eded} HYDROcodon e-Acetamin ophen 7.5-325 MG HYDROcodone -Acetaminop hen 7.5-325 MG HYDROcodone -Acetaminop hen 7.5-325 MG 2022-0 4-05 00:00: 00 No 1{table t_as_ne eded} HYDROcodon e-Acetamin ophen 7.5-325 MG HYDROcodone -Acetaminop hen 7.5-325 MG HYDROcodone -Acetaminop hen 7.5-325 MG 2022-0 4-05 00:00: 00 No 1{table t_as_ne eded} HYDROcodon e-Acetamin ophen 7.5-325 MG HYDROcodone -Acetaminop hen 7.5-325 MG HYDROcodone -Acetaminop hen 7.5-325 MG 2022-0 4-05 00:00: 00 No 1{table t_as_ne eded} HYDROcodon e-Acetamin ophen 7.5-325 MG HYDROcodone -Acetaminop hen 7.5-325 MG HYDROcodone -Acetaminop hen 7.5-325 MG 2022-0 4-05 00:00: 00 No 1{table t_as_ne eded} HYDROcodon e-Acetamin ophen 7.5-325 MG HYDROcodone -Acetaminop hen 7.5-325 MG HYDROcodone -Acetaminop hen 7.5-325 MG 2022-0 4-05 00:00: 00 No 1{table t_as_ne eded} HYDROcodon e-Acetamin ophen 7.5-325 MG Xarelto 10 MG Xarelto 10 MG 2022-0 4- 00:00: 00 No 1{table t} QD Xarelto 10 MG Xarelto 10 MG Xarelto 10 MG 2022-0 4- 00:00: 00 No 1{table t} QD Xarelto 10 MG Xarelto 10 MG Xarelto 10 MG 2022-0 4- 00:00: 00 No 1{table t} QD Xarelto 10 MG Xarelto 10 MG Xarelto 10 MG 2022-0 4- 00:00: 00 No 1{table t} QD Xarelto 10 MG Xarelto 10 MG Xarelto 10 MG 2-0 4- 00:00: 00 No 1{table t} QD Xarelto 10 MG Xarelto 10 MG Xarelto 10 MG 2-0 4- 00:00: 00 No 1{table t} QD Xarelto 10 MG Xarelto 10 MG Xarelto 10 MG 2022-0 4- 00:00: 00 No 1{table t} QD Xarelto 10 MG Xarelto 10 MG Xarelto 10 MG 2-0 4- 00:00: 00 No 1{table t} QD Xarelto 10 MG Xarelto 10 MG Xarelto 10 MG 2-0 4- 00:00: 00 No 1{table t} QD Xarelto 10 MG Xarelto 10 MG Xarelto 10 MG 2-0 - 00:00: 00 No 1{table t} QD Xarelto 10 MG Xarelto 10 MG Xarelto 10 MG 2-0 - 00:00: 00 No 1{table t} QD Xarelto 10 MG Gabapentin 100 MG Gabapentin 100 MG 1-0 04-02 00:00: 00 No 1{capsu le} BID Gabapentin 100 MG Gabapentin 100 MG Gabapentin 100 MG 1-0 04-02 00:00: 00 No 1{capsu le} BID Gabapentin 100 MG Gabapentin 100 MG Gabapentin 100 MG 1-0 04-02 00:00: 00 No 1{capsu le} BID Gabapentin 100 MG Gabapentin 100 MG Gabapentin 100 MG 04-02 00:00: 00 No 1{capsu le} BID Gabapentin 100 MG Gabapentin 100 MG Gabapentin 100 MG 04-02 00:00: 00 No 1{capsu le} BID Gabapentin 100 MG Gabapentin 100 MG Gabapentin 100 MG 04-02 00:00: 00 No 1{capsu le} BID Gabapentin 100 MG Gabapentin 100 MG Gabapentin 100 MG 04-02 00:00: 00 No 1{capsu le} BID Gabapentin 100 MG Gabapentin 100 MG Gabapentin 100 MG 04-02 00:00: 00 No 1{capsu le} BID Gabapentin 100 MG Gabapentin 100 MG 04-02 00:00: 00 No 1{capsu le} BID Gabapentin 100 MG Gabapentin 100 MG Gabapentin 100 MG 04-02 00:00: 00 No 1{capsu le} BID Gabapentin 100 MG Gabapentin 100 MG Gabapentin 100 MG 04-02 00:00: 00 No 1{capsu le} BID Gabapentin 100 MG Gabapentin 100 MG Gabapentin 100 MG 04-02 00:00: 00 No 1{capsu le} BID Gabapentin 100 MG Gabapentin 100 MG Gabapentin 100 MG 04-02 00:00: 00 No 1{capsu le} BID Gabapentin 100 MG Gabapentin 100 MG Gabapentin 100 MG 04-02 00:00: 00 No 1{capsu le} BID Gabapentin 100 MG Gabapentin 100 MG Gabapentin 100 MG 04-02 00:00: 00 No 1{capsu le} BID Gabapentin 100 MG Abilify Abilify 04-25 00:00: 00 Yes [place] [address] [facility] Paxil Paxil Yes Teodora [place] [address] tablet in the morning [facility] Ativan Ativan Yes Teodora [place] [address] [facility] Celebrex Celebrex Yes Teodora [place] [address] [facility] Paxil 20 MG Paxil 20 MG No 1{table t_in_th e_morni ng} QD Paxil 20 MG Celecoxib 200 MG Celecoxib 200 MG No Celecoxib 200 MG Red [place]ast [place] 600 MG Red Yeast [place] 600 MG No Red [place]ast [place] 600 MG Paxil 20 MG Paxil 20 MG No 1{table t_ e_morni ng} QD Paxil 20 MG Paxil 20 MG Paxil 20 MG No 1{table t e_morni ng} QD Paxil 20 MG [place] 600 MG Red [place]ast [place] 600 MG No Red [place] 600 MG Celecoxib 200 MG Celecoxib 200 MG No Celecoxib 200 MG Paxil 20 MG Paxil 20 MG No 1{table t e_morni ng} QD Paxil 20 MG [place] 600 MG Red [place]ast [place] 600 MG No Red [place] 600 MG Celecoxib 200 MG Celecoxib 200 MG No Celecoxib 200 MG Celecoxib 200 MG Celecoxib 200 MG No Celecoxib 200 MG [place] 600 MG Red [place]ast [place] 600 MG No Red [place] 600 MG Paxil 20 MG Paxil 20 MG No 1{table t e_morni ng} QD Paxil 20 MG ASA-APAP-Ca ff Buffered ASA-APAP-Ca ff Buffered No ASA-APAP-C aff Buffered ASA-APAP-Ca ff Buffered ASA-APAP-Ca ff Buffered No ASA-APAP-C aff Buffered Celecoxib 200 MG Celecoxib 200 MG No Celecoxib 200 MG Red [place] 600 MG Red Yeast [place] 600 MG No Red [place]ast [place] 600 MG Paxil 20 MG Paxil 20 MG No 1{table t_ e_morni ng} QD Paxil 20 MG ASA-APAP-Ca ff Buffered ASA-APAP-Ca ff Buffered No ASA-APAP-C aff Buffered Celecoxib 200 MG Celecoxib 200 MG No Celecoxib 200 MG Red [place] 600 MG Red Yeast [place] 600 MG No Red [place]ast [place] 600 MG Paxil 20 MG Paxil 20 MG No 1{table t e_morni ng} QD Paxil 20 MG ASA-APAP-Ca ff Buffered ASA-APAP-Ca ff Buffered No ASA-APAP-C aff Buffered Celecoxib 200 MG Celecoxib 200 MG No Celecoxib 200 MG Red [place]ast [place] 600 MG Red Yeast [place] 600 MG No Red [place]ast [place] 600 MG Paxil 20 MG Paxil 20 MG No 1{table t e_morni ng} QD Paxil 20 MG Red [place]ast [place] 600 MG Red [place]ast [place] 600 MG No Celecoxib 200 MG Celecoxib 200 MG No Paxil 20 MG Paxil 20 MG No 1{table t e_morni ng} QD Red Yeast [place] 600 MG Red [place]ast [place] 600 MG No Red [place] 600 MG Celecoxib 200 MG Celecoxib 200 MG No Celecoxib 200 MG Paxil 20 MG Paxil 20 MG No 1{table t_in e_morni ng} QD Paxil 20 MG Red [place] 600 MG Red Yeast [place] 600 MG No Red [place] 600 MG Celecoxib 200 MG Celecoxib 200 MG No Celecoxib 200 MG Paxil 20 MG Paxil 20 MG No 1{table t_in e_morni ng} QD Paxil 20 MG Red [place]ast [place] 600 MG Red [place]ast [place] 600 MG No Red [place] 600 MG Celecoxib 200 MG Celecoxib 200 MG No Celecoxib 200 MG Paxil 20 MG Paxil 20 MG No 1{table t_in e_morni ng} QD Paxil 20 MG Celecoxib 200 MG Celecoxib 200 MG No Celecoxib 200 MG [place]ast [place] 600 MG Red [place]ast [place] 600 MG No Red Yeast [place] 600 MG Paxil 20 MG Paxil 20 MG No 1{table t_in e_morni ng} QD Paxil 20 MG Celecoxib 200 MG Celecoxib 200 MG No Celecoxib 200 MG Paxil 20 MG Paxil 20 MG No 1{table t_in e_morni ng} QD Paxil 20 MG Red [place]ast [place] 600 MG Red Yeast [place] 600 MG No Red [place]ast [place] 600 MG Celecoxib 200 MG Celecoxib 200 MG No Celecoxib 200 MG Red [place]ast [place] 600 MG Red [place]ast [place] 600 MG No Red [place]ast [place] 600 MG Paxil 20 MG Paxil 20 MG No 1{table t_in e_morni ng} QD Paxil 20 MG Celecoxib 200 MG Celecoxib 200 MG No Celecoxib 200 MG Red Yeast [place] 600 MG Red Yeast [place] 600 MG No Red Yeast [place] 600 MG Vital Signs Vital Name Observation Time Observation Value Comments S ource height 2022-05-25 10:00:00 68 [in_i] Commo n [facility] weight 2022-05-25 10:00:00 125.4 [lb_av] Co mmon [facility] temperature 2022-05-25 10:00:00 97.3 [degF] Com mon [facility] bmi 2022-05-25 10:00:00 19.06 kg/m2 Comm on [facility] blood pressure systolic 2022-05-25 10:00:00 122 mm[Hg] Common [facility] blood pressure diastolic 2022-05-25 10:00:00 70 mm[Hg] [facility] height 2022-03-30 08:00:00 68 [in_i] Commo n [facility] weight 2022-03-30 08:00:00 129 [lb_av] Comm on [facility] temperature 2022-03-30 08:00:00 96.8 [degF] Com mon [facility] bmi 2022-03-30 08:00:00 19.61 kg/m2 Comm on [facility] blood pressure systolic 2022-03-30 08:00:00 118 mm[Hg] Common [facility] blood pressure diastolic 2022-03-30 08:00:00 78 mm[Hg] Common [facility] height 2022-03-11 08:00:00 68 [in_i] Commo n [facility] weight 2022-03-11 08:00:00 129 [lb_av] Comm on [facility] bmi 2022-03-11 08:00:00 19.61 kg/m2 Comm on [facility] blood pressure systolic 2022-03-11 08:00:00 116 mm[Hg] Common [facility] blood pressure diastolic 2022-03-11 08:00:00 78 mm[Hg] [facility] height 2022-02-25 13:30:00 68 [in_i] Commo n [facility] weight 2022-02-25 13:30:00 129 [lb_av] Comm on [facility] bmi 2022-02-25 13:30:00 19.61 kg/m2 Comm on [facility] blood pressure systolic 2022-02-25 13:30:00 115 mm[Hg] [facility] blood pressure diastolic 2022-02-25 13:30:00 74 mm[Hg] Common [facility] height 2022-02-06 08:30:00 68 [in_i] Commo n [facility] weight 2022-02-06 08:30:00 129 [lb_av] Comm on [facility] bmi 2022-02-06 08:30:00 19.61 kg/m2 Comm on [facility] blood pressure systolic 2022-02-06 08:30:00 115 mm[Hg] Common [facility] blood pressure diastolic 2022-02-06 08:30:00 74 mm[Hg] Common [facility] height 2021-11-20 13:30:00 68 [in_i] Commo n [facility] weight 2021-11-20 13:30:00 129.8 [lb_av] Co mmon [facility] bmi 2021-11-20 13:30:00 19.73 kg/m2 Comm on [facility] blood pressure systolic 2021-11-20 13:30:00 113 mm[Hg] Common [facility] blood pressure diastolic 2021-11-20 13:30:00 76 mm[Hg] [facility] Encounters Start Date/Time End Date/Time Encounter Type Admission Type Attending [facility] Care Facility Care Department Encounter ID Source 2022-04-08 10:00:00 Outpatient VerónicaTeodora STLC STLC [id number] [facility] 2022-01-29 13:40:01 Outpatient Verónica Teodora STEDYLC STLC [id number] [facility] 2022-01-26 14:21:01 Outpatient Verónica Teodora [facility] STLC [id number] [facility] 2021-12-03 14:34:59 Outpatient VerónicaTeodora STEDYLC STLC [id number] [facility] 2021-12-03 13:38:25 Outpatient Verónica Teodora STLC STLC [id number] [facility] 2021-12-03 12:21:54 Outpatient Teodora Sanches STLMLC STLMLC [id number] [facility] 2022-05-26 00:00:00 2022-05-26 00:00:00 (TEL) STLMLC STLMLC [id number] [facility] 2022-05-25 00:00:00 2022-05-25 00:00:00 OFFICE VISIT EST PT LEVEL [id number] [facility] 2022-03-30 00:00:00 2022-03-30 00:00:00 NON-BILLAB LE VISIT STLMLC STLMLC [id number] [facility] 2022-03-11 00:00:00 2022-03-11 00:00:00 Postop visit STLMLC STLMLC [id number] [facility] 2022-02-25 00:00:00 2022-02-25 00:00:00 Postop visit STLMLC STLMLC [id number] [facility] 2022-02-20 00:00:00 2022-02-20 00:00:00 (TEL) STLMLC STLMLC [id number] [facility] 2022-02-11 00:00:00 2022-02-11 00:00:00 (TEL) STLMLC STLMLC [id number] [facility] 2022-02-11 00:00:00 2022-02-11 00:00:00 (TEL) STLMLC STLMLC [id number] [facility] 2022-02-09 00:00:00 2022-02-09 00:00:00 (TEL) STLMLC STLMLC [id number] [facility] 2022-02-06 00:00:00 2022-02-06 00:00:00 (TEL) STLMLC STLMLC [id number] [facility] 2022-02-06 00:00:00 2022-02-06 00:00:00 OFFICE VISIT EST PT LEVEL [id number] [facility] 2022-01-29 00:00:00 2022-01-29 00:00:00 (TEL) STLMLC STLMLC [id number] [facility] 2022-01-14 00:00:00 2022-01-14 00:00:00 (TEL) STLMLC STLMLC [id number] [facility] 2021-11-21 00:00:00 2021-11-21 00:00:00 (TEL) STLMLC STLMLC [id number] [facility] 2021-11-20 00:00:00 2021-11-20 00:00:00 OFFICE VISIT EST PT LEVEL [id number] [facility] 2020-10-18 00:00:00 2020-10-18 00:00:00 Outpatient [facility]LMLC [facility]LMLC [id number] [facility] 2020-04-25 10:46:00 2020-04-25 10:46:00 [facility] [id number] [facility] 2020-04-18 09:40:00 2020-04-18 09:40:00 [facility] [id number] [facility] 2020-04-08 10:29:00 2020-04-08 10:29:00 [facility] [id number] [facility] 2019-08-08 15:29:00 2019-08-08 15:29:[address] [facility] [address] [facility] [id number] [facility] 2019-07-12 13:56:00 2019-07-12 13:56:00 [facility] [id number] [facility] 2019-07-07 14:47:00 2019-07-07 14:47:00 [facility] [id number] [facility] 2019-06-27 09:15:00 2019-06-27 09:15:00 Outpatient [facility] [id number] [facility] 2019-06-12 10:20:00 2019-06-12 10:20:00 Outpatient [facility] [id number] [facility] 2018-04-25 15:30:00 2018-04-25 15:30:00 Outpatient [facility] [id number] [facility]
--- NOTE | 2023-11-20 20:06 | RAD REPORT ---
EXAM DESCRIPTION: RAD - Hand Right 3 View - 11/20/2023 7:54 pm CLINICAL HISTORY: Right hand pain status post injury FINDINGS: No fracture or dislocation is seen.
--- NOTE | 2023-11-20 21:59 | ER ---
Nurse's Notes [facility] Name: Nancy Dwyer Age: 68 yrs Sex: Female : 1955 Arrival Date: 11/20/2023 Time: 18:42 Bed 11 Private MD: Diagnosis: Laceration without foreign body of right hand, initial encounter Presentation: 11/20 19:19 Chief complaint: Patient states: Right hand laceration, kicked by a cow when attempted nj1 to milk it. Coronavirus screen: Vaccine status: Patient reports receiving the 2nd dose of the covid vaccine. Ebola Screen: Patient denies travel to an Ebola-affected area in the 21 days before illness onset. Initial Sepsis Screen: Does the patient meet any 2 criteria? No. Patient's initial sepsis screen is negative. Does the patient have a suspected source of infection? No. Patient's initial sepsis screen is negative. Risk Assessment: Do you want to hurt yourself or someone else? Patient reports no desire to harm self or others. Onset of symptoms was November 20, 2023. 19:19 Method Of Arrival: Ambulatory [facility] 19:19 Acuity: JAKE 4 [facility] 22:17 Complicating Factors: There are no complicating factors for this patient. la4 Triage Assessment: 22:17 General: Appears in no apparent distress. Behavior is calm, cooperative, appropriate la4 for age. Injury Description: Laceration sustained to right hand. 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 - Social history:: Smoking status: Reported history of juuling and/or vaping. Screenin:26 [facility] ED Fall Risk Assessment (Adult) History of falling in the last 3 months, la4 including since admission No falls in past 3 months (0 pts) Confusion or Disorientation No (0 pts) Intoxicated or Sedated No (0 pts) Impaired Gait No (0 pts) Mobility Assist Device Used No (0 pt) Altered Elimination No (0 pt) Score/Fall Risk Level 0 - 2 = Low Risk Oriented to surroundings, Maintained a safe environment, Hourly rounding (assess needs \T\ fall precautionary measures) done. Abuse screen: Denies threats or abuse. Denies injuries from another. Nutritional screening: No deficits noted. Tuberculosis screening: No symptoms or risk factors identified. Assessment: 20:26 Pain: Complains of pain in dorsum of right hand Pain does not radiate. Musculoskeletal: la4 No deficits noted. Capillary refill < 3 seconds, is brisk, Range of motion: intact in all extremities, Swelling absent Tenderness present in right hand. Injury Description: Laceration is jagged, 2.6 to 7.5 cm long, not bleeding, Pt reports that she was kicked in the hand by a calf. Vital Signs: 19:19 BP 111 / 69; Pulse 69; Resp 16; Temp 97.9(TE); Pulse Ox 95% ; Weight 58.97 kg; Height 5 nj1 ft. 8 in. ; Pain 4/10; 19:19 Body Mass Index 19.77 (58.97 kg, 172.72 cm) nj1 19:19 Pain Scale: Adult nj1 Ant Coma Score: 20:26 Eye Response: spontaneous(4). Motor Response: obeys commands(6). Verbal Response: la4 oriented(5). Total: 15. ED Course: 18:46 Patient arrived in ED. ts1 18:58 Jameson Rico PA is PHCP. cp 18:58 Jameson Roberts MD is Attending Physician. cp 19:22 Triage completed. nj1 19:23 Arm band placed on left wrist. nj1 19:38 Fidencio Gonzalez RN is Primary Nurse. la4 19:56 XRAY Hand RIGHT 3 View In Process Unspecified. EDMS 20:26 Patient has correct armband on for positive identification. Bed in low position. Call la4 light in reach. Side rails up X 1. Provided Education on: plan of care. 20:26 No provider procedures requiring assistance completed. No provider procedures requiring la4 assistance completed. Assist provider with laceration repair on dorsum of right hand that was between 2.6 to 7.5 cm using sutures. Set up tray. Performed by Jameson Roberts MD. Patient did not have IV access during this emergency room visit. Administered Medications: 19:57 Drug: Tetanus-Diphtheria Toxoid IM Adult 0.5 ml IM once; Provide Vaccine Information la4 Statement (VIS). 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: [employer]; Exp: WedMar 30 2025; Lot #: [id number]; Series: 1 of ; Patient Consent: Obtained; Date/Time: ; Source Name: Nancy Dwyer; Source Relationship: Self; Address Information: [address] [place] [address]; ; Education: Provided; VIS Presented Date: ; VIS Publication: Tetanus/Diphtheria (Td) Vaccine VIS 02/16/2017 (historic)} Route: IM; Site: left deltoid; 19:57 Drug: HYDROcodone-acetaminophen PO 5 mg-325 mg 1 tabs PO once Route: PO; la4 19:58 Drug: Ibuprofen PO 800 mg PO once Route: PO; la4 20:35 Drug: Lidocaine Infiltration (2 %) 10 ml 5 ml Infiltration once; to bedside with epi la4 {Note: Provided to provider Jameson Rico to be administered during laceration repair..} Volume: 5 ml; Route: Infiltration; Medication: 20:26 VIS not applicable for this client. la4 Outcome: 21:59 Discharge ordered by . cp 22:16 Discharged to home with significant other, la4 22:16 Condition: good 22:16 Discharge instructions given to patient, significant other, Instructed on discharge instructions, follow up and referral plans. no drinking with medication, wound care, when to return for suture removal Demonstrated understanding of instructions, follow-up care, medications, wound care, Prescriptions given X 2, 22:17 Patient left the ED. [email or web address] Signatures: Dispatcher [employer] EDMS Jameson Rico PA PA cp Jaco, Norma RN RN nj1 Anu Gamboa PAS PAS ts1 Fidencio Gonzalez RN RN la4
--- NOTE | 2023-11-20 21:59 | EDPHYS ---
Physician Documentation [facility] Name: Nancy Dwyer Age: 68 yrs Sex: Female : 1955 Arrival Date: 11/20/2023 Time: 18:42 Bed 11 Private MD: Jameson Rivero HPI: 11/20 19:30 This 68 yrs old Female presents to ER via Ambulatory with complaints of Laceration To cp Hand. 19:30 The laceration(s) is(are) located on the dorsum of right hand. cp 19:30 The patient has a laceration occurred when cow kicked back of right hand. Onset: The cp symptoms/episode began/occurred just prior to arrival. Associated signs and symptoms: The patient has no apparent associated signs or symptoms. Historical: - Allergies: 19:22 PENICILLINS; nj1 - PMHx: 19:22 OCD; nj1 - PSHx: 19:23 Hip replacement, right; nj1 - Immunization history:: Client reports receiving the 2nd dose of the Covid vaccine. - Social history:: Smoking status: Reported history of juuling and/or vaping. ROS: 19:35 Skin: Positive for laceration(s), of the dorsum of right hand, cp 19:35 Constitutional: Negative for fever, cp 19:35 MS/extremity: Positive for pain, swelling, tenderness, of the dorsum of right hand, Negative for deformity, paresthesias, 19:35 All other systems are negative, cp Exam: 19:40 Constitutional: The patient appears in no acute distress, alert, awake, non-toxic, well cp developed, well nourished, uncomfortable, 19:40 Musculoskeletal/extremity: Extremities: grossly normal except: noted in the dorsum of cp right hand: laceration, pain, swelling, tenderness, mild bleeding noted, ROM: full active range of motion, in the right hand, Perfusion: the extremity is normally perfused throughout, Sensation intact. Vital Signs: 19:19 BP 111 / 69; Pulse 69; Resp 16; Temp 97.9(TE); Pulse Ox 95% ; Weight 58.97 kg; Height 5 nj1 ft. 8 in. ; Pain 4/10; 19:19 Body Mass Index 19.77 (58.97 kg, 172.72 cm) nj1 19:19 Pain Scale: Adult nj1 Ant Coma Score: 20:26 Eye Response: spontaneous(4). Motor Response: obeys commands(6). Verbal Response: la4 oriented(5). Total: 15. Laceration: 22:00 Wound Repair of 5cm ( 2.0in ) subcutaneous laceration to dorsum of right hand. Linear cp shaped.. Distal neuro/vascular/tendon intact. Anesthesia: Wound infiltrated with 5 mls of 2% lidocaine. Wound prep: Moderate cleansing by nurse, Wound irrigation by nurse. Skin closed with 5 5-0 Prolene using interrupted sutures and sterile technique. Dressed with Bacitracin, 4x4's. Patient tolerated well. MDM: 19:24 Patient medically screened. 21:58 Data reviewed: vital signs, nurses notes, radiologic studies, plain films. 21:58 I considered the following discharge prescriptions or medication management in the emergency department Medications were administered in the Emergency Department. See MAR. Counseling: I had a detailed discussion with the patient and/or guardian regarding the historical points, exam findings, and any diagnostic results supporting the discharge/admit diagnosis, radiology results, to return to the emergency department if symptoms worsen or persist or if there are any questions or concerns that arise at home. Response to treatment: the patient's symptoms have markedly improved after treatment, and as a result, I will discharge patient. Special discussion: I discussed in detail with the patient the higher chance of wound infection based on his presenting history. 11/20 19:20 Order name: XRAY Hand RIGHT 3 View; Complete Time: 20:23 11/20 20:23 Interpretation: Report reviewed. 11/20 21:26 Order name: Wound dressing 11/20 21:26 Order name: Splint: volar hand splint Administered Medications: 19:57 Drug: Tetanus-Diphtheria Toxoid IM Adult 0.5 ml IM once; Provide Vaccine Information la4 Statement (VIS). {Cable Strander: [employer]; Exp: WedMar 30 2025; Lot #: [id number]; Series: 1 of 1; Patient Consent: Obtained; Date/Time: ; Source Name: Nancy Dywer; Source Relationship: Self; Address Information: [address] [place] [address]; ; Education: Provided; VIS Presented Date: ; VIS Publication: Tetanus/Diphtheria (Td) Vaccine VIS 02/16/2017 (historic)} Route: IM; Site: left deltoid; 19:57 Drug: HYDROcodone-acetaminophen PO 5 mg-325 mg 1 tabs PO once Route: PO; la4 19:58 Drug: Ibuprofen PO 800 mg PO once Route: PO; la4 20:35 Drug: Lidocaine Infiltration (2 %) 10 ml 5 ml Infiltration once; to bedside with epi la4 {Note: Provided to provider Jameson Rico to be administered during laceration repair..} Volume: 5 ml; Route: Infiltration; Disposition Summary: 11/20/23 21:59 Discharge Ordered Notes: Location: Home cp Problem: new cp Symptoms: have improved cp Condition: Stable cp Diagnosis - Laceration without foreign body of right hand, initial encounter cp Followup: cp - With: Private Physician - When: 10 - 14 days - Reason: Staple/Suture removal Discharge Instructions: - Discharge Summary Sheet cp - Laceration Care, Adult cp - Sutured Wound Care cp Forms: - Medication Reconciliation Form cp - Thank You Letter cp - Antibiotic Education cp - Prescription Opioid Use cp - Patient Portal Instructions cp - Leadership Thank You Letter cp Prescriptions: - Cephalexin 500 mg Oral Capsule - take 1 capsule ORAL route every 8 hours for 10 days; 30 capsule; Refills: 0, cp Product Selection Permitted - Ibuprofen 800 mg Oral Tablet - take 1 tablet ORAL route every 8 hours As needed take with food; 30 tablet; cp Refills: 0, Product Selection Permitted Signatures: Dispatcher [employer] EDJameson Vallecillo PA PA cp Nancy Orosco RN RN nj1 Fidencio Gonzalez RN RN la4
[2023-11-20 23:15] VITALS: BP 111/69; TEMP 97.9; O2SAT 95
== END ==
LOC: ER 18:42
PROC: 0HQFXZZ Repair Right Hand Skin, External Approach (ICD-10-PCS; principal; 2023-11-20)
DX: S61.411A Laceration without foreign body of right hand, initial encounter (principal); Z23 Encounter for immunization; Z88.0 Allergy status to penicillin
CPT/HCPCS: 73130; 90471; 99284; 12002; J2001

== ENCOUNTER → 2024-10-16 | Day surgery (SDC) | payer OTHER ==
--- NOTE | 2024-10-16 18:46 | RAD REPORT ---
Exam:Breast Core BX w/US Guidance CLINICAL HISTORY: Left breast mass N63.10 TECHNIQUE: The risks, benefits and alternatives to procedure were explained to the patient and informed consent obtained. Prior ultrasound was reviewed. Skin and deeper tissues were anesthetized with lidocaine. Under sonographic guidance two 14-gauge vacuum-assisted core biopsies of the breast left mass were ob tained. The specimens were given to pathology. Subsequently a localizing clip was placed into the mass. Pressure was applied to the biopsy site. Patient experienced immediate complication. IMPRESSION: Core biopsies of the left breast mass
== END ==
LOC: DS 10:10
PROVIDERS: ATTEND Family Medicine
DX: N63.10 Unspecified lump in the right breast, unspecified quadrant (principal); R92.8 Other abnormal and inconclusive findings on diagnostic imaging of breast
CPT/HCPCS: 19083; 88305

== ENCOUNTER 2024-11-14 06:00 | Day surgery (SDC) | payer OTHER ==
[2024-11-14] MEDS: TRANEXAMIC ACID 1,000 MG/10 ML VIAL IV ONE (06:26)
[2024-11-14] MEDS: Ringers Lactate 1,000 ML IV ONE ×2 (06:33→08:01)
[2024-11-14] MEDS: Oxycodone HCl/Acetaminophen 5/325 MG TAB ONE (06:36)
[2024-11-14] MEDS: ACETAMINOPHEN 500 MG TAB ONE (06:36)
[2024-11-14] MEDS: GABAPENTIN 100 MG CAP ONE (06:36)
[2024-11-14] MEDS: CELECOXIB 100 MG CAPSULE ONE (06:36)
[2024-11-14 06:43] LABS: Specific Gravity 1.013 (1.005-1.030); Sqamous Epithelial 20-50 /HPF (None Seen); Urine Bacteria <20 /HPF (<20); Urine Bilirubin NEGATIVE (Negative); Urine Blood Trace (Negative); Urine Clarity Extremely Turbid (Clear); Urine Color Yellow (Yellow); Urine Culture Reflex Order NOT NEEDED; Urine Glucose NEGATIVE (Negative); Urine Ketones NEGATIVE (Negative); Urine Microscopic Reflex YN ORDER UMIC; Urine Mucus Slight /HPF (None Seen); Urine Nitrite NEGATIVE (Negative); Urine Protein NEGATIVE (Negative); Urine RBC 21-50 /HPF (None Seen); Urine Urobilinogen Normal (Normal); Urine WBC >50 /HPF (<5); Urine WBC Clump Occasional /HPF (None Seen); Urine pH 5.5 (5.0-7.0)
[2024-11-14] MEDS: MORPHINE SULFATE/PF 1 MG/ML (10 ML AMP) ONE (06:49)
[2024-11-14] MEDS ORDERED: propofoL 200 MG/20 ML VIAL IV ONE ×2 (06:50→11:42)
[2024-11-14] MEDS ORDERED: FENTANYL CITR 100 MCG/2 ML ONE (06:50)
[2024-11-14] MEDS ORDERED: LIDOCAINE 2% MPF 5 ML VIAL ONE ×2 (06:50→11:41)
[2024-11-14] MEDS ORDERED: ONDANSETRON 4 MG/2 ML VIAL ONE (06:50)
[2024-11-14] MEDS ORDERED: MIDAZOLAM HCL 2 MG/2 ML INJ ONE (06:51)
[2024-11-14] MEDS ORDERED: EPHEDRINE SULF 50 MG/ML VIAL ONE (07:18)
[2024-11-14] MEDS ORDERED: GLYCOPYRROLATE 0.2 MG/ML SYR ONE (07:19)
[2024-11-14] MEDS ORDERED: dexAMETHasone 10 MG/ML VIAL ONE ×2 (07:31→11:42)
[2024-11-14] MEDS: CEFAZOLIN SODIUM 2 GM/VIAL ONE (07:43)
[2024-11-14] MEDS: dexAMETHasone 10 MG/ML VIAL ONE (08:29)
[2024-11-14] MEDS: DEXMEDETOMIDINE HCL 200 MCG/2 ML VIAL ONE (08:30)
[2024-11-14] MEDS: BUPIVACAINE 0.25% PF 30 ML VIAL ONE (08:30)
[2024-11-14] MEDS: BUPIVACAINE 0.5% PF 10 ML VIAL ONE (08:30)
[2024-11-14] MEDS: LIDOCAINE 1% MPF 5 ML VIAL ONE (08:30)
[2024-11-14] MEDS: EPINEPHRINE 1 MG/ML VIAL ONE (08:30)
[2024-11-14] MEDS: SODIUM BICARB 50 MEQ/50ML VIAL ONE (08:31)
[2024-11-14] MEDS: MAGNESIUM SULFATE 1 gm IVPB 0 GM/0 ML BAG IV ONE (08:31)
--- NOTE | 2024-11-14 08:59 | P.BOP ---
Preoperative diagnosis: left hip arthritis Postoperative diagnosis: same Primary procedure: left total hip arthoplasty Estimated blood loss: 100ccs Anesthesia: General Transferred to: Recovery Room Condition: Good
[2024-11-14] MEDS ORDERED: DOCUSATE NA 100 MG CAP PO PRN (09:00)
--- NOTE | 2024-11-14 09:08 | RAD REPORT ---
Exam:Hip Left 1 View HISTORY: Left hip surgery FINDINGS: An intraoperative film demonstrates performance of a left hip arthroplasty. Prosthesis in good positi on. No fracture seen
[2024-11-14 09:55] LABS: Hematocrit 40.7 % (36.0-45.0); Hemoglobin 13.6 g/dL (12.0-15.0)
[2024-11-14] MEDS ORDERED: METOCLOPRAMIDE 10 MG/2mL INJ IV PRN (10:14)
[2024-11-14] MEDS ORDERED: NALOXONE 0.4 MG/ML VIAL IM PRN (10:14)
[2024-11-14] MEDS ORDERED: NALOXONE 0.4 MG/ML VIAL IV PRN (10:15)
[2024-11-14] MEDS: FENTANYL CITR 100 MCG/2 ML ONE (10:54)
[2024-11-14] MEDS: MIDAZOLAM HCL 2 MG/2 ML INJ ONE (10:54)
--- NOTE | 2024-11-14 10:57 | OP ---
Date of Procedure: 11/14/2024 Surgeon: Andrey Higginbotham MD Preoperative Diagnosis: Severe left hip arthritis, unrelieved with conservative measures. Postoperative Diagnosis: Severe left hip arthritis, unrelieved with conservative measures. Procedure: Left total hip arthroplasty using the [place] total hip system. Estimated Blood Loss: 100 cc. Complications: There were no complications. Indications For Operation: Ms. Dwyer is a 69-year-old female who has had previously approximately 2 and a half to 3 years ago, a right total hip arthroplasty which was performed by me which did very we ll. She had left hip pain at that time; however, it was not as severe as it is now. She is currentl y taking narcotics to control the pain, although this may not all be from her hip. She is having inc reasing difficulty with the use of her left lower extremity and pain related to the groin. X-rays de monstrated arthritic changes of the hip and risks, benefits, and alternatives of total hip arthroplas ty on the left had been discussed with her. She has had a total hip arthroplasty on the right and elliott d done well. She says she understands things as presented and wishes to proceed. Description Of Procedure: Patient was taken to the operating room. Spinal anesthesia obtained by An esthesia staff. Following this, general anesthesia was then obtained by Anesthesia staff. She was r olled right side down with an axillary roll. All her bony prominences were checked and she was place d with hip positioners. After this, left lower extremity was then prepped and draped in the usual st erile fashion for a total hip arthroplasty. A standard posterior lateral incision was then taken kiel n very carefully through skin and soft tissues. Meticulous hemostasis being maintained using Bovie e lectrocautery. This led down to the fascia. A small stab wound was made in the fascia and gluteal t endon was palpated and the fascial incision was taken up until near the tip of the greater trochanter . Following this, it was then curved gently backward and the gluteus sam was spread using finger pressure. The sciatic nerve was palpated and protected as the Charnley was placed. The external ro tators and capsule were then taken down carefully and tagged for later repair. The hip was then disl ocated. It was found to have diffuse arthritic changes as well as some osteophyte formation. A slig htly shorter than standard neck cut was then performed to allow for good visualization. The labrum w as encountered. Labrum was found to be very large, perhaps there was a paralabral cyst and the labru m itself was completely excised. Any soft tissue was removed within the acetabulum. The head was si zed using ring gauges and previous contralateral size, we know. Cup size was a 52. It was then sequ entially reamed up to a size 51. It did appear to have good bleeding bone. After this, the size 52 cup was then placed. It appeared to have very good stability and felt there was no need for screws. Following this, attention was then turned to the femur and a box coverer hand was used as well as canal fi nding reamer. It was then sequentially reamed up to a size 5 and the size 5 broach was placed. It a ppeared to seat well but maybe slightly proud. X-rays were taken, which demonstrated that perhaps it would be better to shorten the neck slightly and place a size 4, which was done. The size 4 broach now appears to fit well without being proud. This was selected as the final stem. The liner was the n placed and the size 4 stem was placed. It was then trialed. The -4 ball appeared to be most appro priate and this was what was used for the final ball. It was tapped on the place and the hip was the n relocated. It was found to be stable to full flexion, full adduction, internal rotation to at leas t 45 degrees. It did come to full extension. The slightly longer stem did appear to be too tight wh en trialed and this was definitely stable. So the -4 was used. The wound was copiously irrigated an d the external rotators and capsule were then repaired back to the trochanter via bone tunnels. Foll owing this, it was again irrigated and the skin was closed using interrupted Vicryl sutures followed by josie. The patient was then placed in Aquacel dressing. She was awakened, and taken to recovery room in good condition. There were no complications. SE/MODL Voice ID: [id number] Report ID: [id number]
[2024-11-14] MEDS ORDERED: KETOROLAC 30 MG/ML INJ ONE (11:41)
[2024-11-14] MEDS ORDERED: KETAMINE HCL IN 0.9 % NACL 50 MG/5 ML SYRINGE IV ONE (11:41)
[2024-11-14 12:40] VITALS: BMI 19.6
[2024-11-14] MEDS: NA CHLORIDE 0.9% 1,000 ML IV SCH (14:49)
[2024-11-14 17:07] LABS: Hematocrit 37.9 % (36.0-45.0); Hemoglobin 12.8 g/dL (12.0-15.0)
--- NOTE | 2024-11-14 17:36 | P.CNS ---
Date of Consult: 11/14/24 Reason for Consult: left total hip arthoplasty Requesting Physician: Andrey Higginbotham Chief Complaint: Status post left total hip arthroplasty History of Present Illness: 69-year-old female with a past medical history of COPD, anxiety, fibromyalgia, presents 11/14 status post left hip arthroplasty by Dr. Higginbotham patient being seen by hospital medicine team for medical management. She reports pain is controlled with as needed analgesia, she reports taking antidepressants, daily. No reported anxiety, depression at this time. No reported history of hypertension, hyperlipidemia. Educated on hip precautions, no acute issues at this time. Allergies Penicillins Allergy (Verified 11/13/24 12:10) Anaphylaxis Home Medications: Paroxetine HCl [Paxil] 40 mg PO DAILY 12/22/21 Turmeric 400 mg PO DAILY 12/22/21 Hydrocodone Bit/Acetaminophen [Hydrocodon-Acetaminophen 5-325] 1 each PO Q6HP PRN 11/13/24 - Past Medical/Surgical History Diabetic: No -: depression/anxiety -: COPD -: Fibromyalgia -: hypotension -: right hip replacement -: ACDF x 2 -: bilateral carpal tunnel -: spine back cleanout of arthritis -: tubal 1985 - Family History Father Medical History: Other (see notes) Notes: Alzheimer's, passed Mother Medical History: Hypertension - Social History Smoking Status: Current every day smoker Alcohol use: Yes CD- Drugs: No Caffeine use: Yes Place of Residence: Home Review of Systems 10-point ROS is otherwise unremarkable Physical Examination Temp Pulse Resp BP Pulse Ox 97.3 F 72 16 121/59 L 100 11/14/24 16:00 11/14/24 16:00 11/14/24 16:00 11/14/24 16:00 11/14/24 16:00 General: Alert, In no apparent distress, Oriented x3 HEENT: Atraumatic, Normocephalic, PERRLA Neck: 2+ carotid pulse no bruit, JVD not distended Respiratory: Clear to auscultation bilaterally, Normal air movement Cardiovascular: Normal pulses, Regular rate/rhythm, Normal S1 S2 Capillary refill: <2 Seconds Gastrointestinal: Normal bowel sounds, Soft and benign Musculoskeletal: Other (Left total hip arthroplasty,) Integumentary: Other (Surgical dressing to the left hip dry and intact) Neurological: Normal speech, Normal strength at 5/5 x4 extr, Normal tone Laboratory Data (last 24 hrs) 11/14/24 11/14/24 16:57 09:42 Hgb 12.8 13.6 Hct 37.9 40.7 Conclusions/Impression: Left total hip arthroplasty As needed analgesics for pain control Anticoagulation by surgery PT to eval and treat Fall precautions Anxiety depression Resume appropriate home Regular diet Full code Disposition pending hospital discharge, home with outpatient therapy or home health. Time Spent Managing Pts care (In Minutes): 45
[2024-11-14] MEDS: CEFAZOLIN 1 GM in NA CHLORIDE 0.9% 50 ML IVPB SCH (17:38)
[2024-11-14] MEDS ORDERED: ONDANSETRON 4 MG/2 ML VIAL IV PRN (17:40)
[2024-11-14] MEDS: HYDROCODONE/APAP 7.5/325 MG TAB PO ONE (19:16)
[2024-11-14] MEDS: DIPHENHYDRAMINE 50 MG/ML VIAL IV PRN (20:37)
[2024-11-14] MEDS: TRAZODONE 50 MG TABLET PO SCH (20:37)
[2024-11-15] MEDS: HYDROCODONE/APAP 7.5/325 MG TAB PO PRN ×2 (02:12→09:18)
[2024-11-15 05:02] LABS: Absolute Lymphocytes (CBC) 1.5 K/uL (0.7-4.9); Absolute Monocytes 0.7 K/uL (0.1-1.3); Absolute Neutrophil 6.6 K/uL (1.8-8.0); Basophils % 0.1 % (0-1.3); Eosinophils % 0.1 % (0-4.4); Hematocrit 32.8 % (36.0-45.0); Hemoglobin 11.2 g/dL (12.0-15.0); Lymphocytes % 17.2 % (15.3-44.8); MCH 31.8 pg (27.0-35.0); MCHC 34.3 g/dL (32.0-36.0); MCV 92.8 fL (80-100); MPV 8.3 fL (7.6-11.3); Monocytes % 7.6 % (3.3-12.3); Nucleated Red Blood Cells % 0.1 % (0-0); Platelets 233 thou/uL (152-406); RBC Red Blood Cell Count 3.54 M/uL (3.86-4.86); Red Cell Distribution Width 13.4 % (12.1-15.2)
[2024-11-15 05:18] LABS: Albumin 2.6 g/dL (3.4-5.0); Anion Gap 7.9 mEq/L (5.0-15.0); Phosphorus 2.8 mg/dL (2.5-4.9); Potassium 3.9 mEq/L (3.5-5.1)
--- NOTE | 2024-11-15 06:58 | P.PN ---
Subjective Date of Service: 11/15/24 Chief Complaint: Status post left total hip arthroplasty Status post left total hip arthroplasty, will ambulate with physical therapy to the Review of Systems 10-point ROS is otherwise unremarkable Physical Examination - Vital Signs Temperature: 98.4 F Blood Pressure: 90/50 Pulse: 68 Respirations: 16 Pulse Ox (%): 98 - Studies Laboratory Data (last 24 hrs) 11/15/24 11/15/24 11/14/24 04:27 04:27 16:57 WBC 8.80 Hgb 11.2 L D 12.8 Hct 32.8 L 37.9 Plt Count 233 Sodium 138 Potassium 3.9 BUN 11 Creatinine 0.75 Glucose 137 H Phosphorus 2.8 11/14/24 09:42 WBC Hgb 13.6 Hct 40.7 Plt Count Sodium Potassium BUN Creatinine Glucose Phosphorus Assessment And Plan - Current Problems (Diagnosis) (1) S/P total hip arthroplasty Current Visit: No Status: Acute - Plan Left total hip arthroplasty Hypotensive postop, normal saline, major edema As needed analgesics for pain control, hold for systolic less than 150 Anticoagulation by surgery PT to eval and treat Fall precautions Anxiety depression Resume appropriate home Serial H&H by Ortho Regular diet Full code DVT Lovenox Disposition pending hospital discharge, home with outpatient therapy or home health Discharge Plan: Home - Code Status/Comfort Care Code Status: Full Code Critical Care: No Time Spent Managing PTS Care (In Minutes): 30
[2024-11-15] MEDS ORDERED: MIDODRINE HCL 5 MG TABLET PO PRN (07:02)
[2024-11-15] MEDS ORDERED: HOME MED 1 EA UNK (Paroxetine Hcl [Paxil] 20 MG Tablet) PO SCH (09:00)
[2024-11-15] MEDS: PARoxetine HCL 10 MG TAB PO SCH (09:18)
[2024-11-15] MEDS: ENOXAPARIN 40 MG/0.4 ML SQ SCH (09:19)
--- NOTE | 2024-11-15 11:34 | P.DS ---
Discharge Date: 11/15/24 Disposition: [place] HOME/HOME HEALTH CARE Discharge Condition: GOOD Reason for Admission: Status post left total hip arthroplasty Brief History of Present Illness: 69-year-old female with a past medical history of COPD, anxiety, fibromyalgia, presents 11/14 status post left hip arthroplasty by Dr. Higginbotham patient being seen by [facility] medicine team for medical management. She reports pain is controlled with as needed analgesia, she reports taking antidepressants, daily. No reported anxiety, depression at this time. No reported history of hypertension, hyperlipidemia. Educated on hip precautions, no acute issues at this time. General: Alert, In no apparent distress, Oriented x3 HEENT: Atraumatic, Normocephalic Neck: Supple, 2+ carotid pulse no bruit Respiratory: Clear to auscultation bilaterally, Normal air movement Cardiovascular: No edema, Normal pulses, Regular rate/rhythm Capillary refill: <2 Seconds Gastrointestinal: Normal bowel sounds, Soft and benign Integumentary: No breakdown, No significant lesion Neurological: Normal speech, Normal strength at 5/5 x4 extr Hospital Course: 69-year-old female with a past medical history of COPD, anxiety, fibromyalgia, presents 11/14 status post left hip arthroplasty by Dr. Higginbotham patient being seen by hospital medicine team for medical management. She reports pain is controlled with as needed analgesia, she reports taking antidepressants, daily. No reported anxiety, depression at this time. No reported history of hypertension, hyperlipidemia. Educated on hip precautions, no acute issues at this time. She is tolerating diet, She ambulated with physical therapy. Able to discharge home, follow up with Othro after discharge Physical Home health arranged by Ortho Resume anticoagulation for 3-week Discharged home on as needed analgesics, Xarelto Instruct hip precaution after discharge Assessment 11/14 status post left hip arthroplasty by Dr. Higginbotham depression, resume home meds Continue home medicines as previously prescribed GOAL: Clear understanding of disease process INSTRUCTIONS: Physician Discharge Instructions: -Follow-up with PCP in 1 to 2 weeks -Follow-up with orthopedic after discharge call office for appointment -Please call Dr. Trevizo at [phone] if any questions regarding hospital stay -Please call nursing station at [phone] if any nursing or medication questions -Return to the emergency room if symptoms worsen Diet: ADA, low sodium Activity: Fall precautions Vital Signs/Physical Exam: Temp Pulse Resp BP Pulse Ox 98.1 F 72 16 131/61 98 11/15/24 08:00 11/15/24 08:00 11/15/24 09:18 11/15/24 08:00 11/15/24 09:18 General: Alert, In no apparent distress, Oriented x3 HEENT: Atraumatic, Normocephalic Neck: Supple, 2+ carotid pulse no bruit Respiratory: Clear to auscultation bilaterally, Normal air movement Cardiovascular: No edema, Normal pulses, Regular rate/rhythm Capillary refill: <2 Seconds Gastrointestinal: Normal bowel sounds, Soft and benign Integumentary: No breakdown, No significant lesion Neurological: Normal speech, Normal strength at 5/5 x4 extr Laboratory Data at Discharge: WBC 8.80 thou/uL (4.3-10.9) 11/15/24 04:27 Hgb 11.2 g/dL (12.0-15.0) L D 11/15/24 04:27 Hct 32.8 % (36.0-45.0) L 11/15/24 04:27 Plt Count 233 thou/uL (152-406) 11/15/24 04:27 Sodium 138 mEq/L (136-145) 11/15/24 04:27 Potassium 3.9 mEq/L (3.5-5.1) 11/15/24 04:27 BUN 11 mg/dL (7-18) 11/15/24 04:27 Creatinine 0.75 mg/dL (0.55-1.02) 11/15/24 04:27 Glucose 137 mg/dL (74-106) H 11/15/24 04:27 Phosphorus 2.8 mg/dL (2.5-4.9) 11/15/24 04:27 Home Medications: Paroxetine HCl [Paxil] 40 mg PO DAILY 12/22/21 Turmeric 400 mg PO DAILY 12/22/21 Hydrocodone Bit/Acetaminophen [Hydrocodon-Acetaminophen 5-325] 1 each PO Q6HP PRN 11/13/24 Rivaroxaban [Xarelto] 10 mg PO DAILY 21 Days #21 tab 11/15/24 New Medications: Rivaroxaban [Xarelto] 10 mg PO DAILY 21 Days #21 tab Physician Discharge Instructions: PROBLEM: Hip Replacement GOAL: Clear understanding of disease process INSTRUCTIONS: Physician Discharge Instructions: -Follow-up with PCP in 1 to 2 weeks -Follow-up with orthopedic after discharge call office for appointment -Please call Dr. Trevizo at [phone] if any questions regarding hospital stay -Please call nursing station at [phone] if any nursing or medication questions -Return to the emergency room if symptoms worsen Diet: ADA, low sodium Activity: Fall precautions Diet: Low sodium Activity: Hip precautions 69-year-old female with a past medical history of COPD, anxiety, fibromyalgia, presents 11/14 status post left hip arthroplasty by Dr. Higginbotham patient being seen by hospital medicine team for medical management. She reports pain is controlled with as needed analgesia, she reports taking antidepressants, daily. No reported anxiety, depression at this time. No reported history of hypertension, hyperlipidemia. Educated on hip precautions, no acute issues at this time. She is tolerating diet, She ambulated with physical therapy. Able to discharge home, follow up with Othro after discharge Resume anticoagulation after discharge for 2 weeks monitor for bleed Physical therapy after discharge arranged by Ortho Discharged home on as needed analgesics, Hip precaution after discharge Assessment 11/14 status post left hip arthroplasty by Dr. Higginbotham depression, resume home meds Hypotension improved with IV fluids, major team. Continue home medicines as previously prescribed GOAL: Clear understanding of disease process Followup: Yolie Aviles MD [Primary Care Provider] - Andrey Higginbotham MD [ACTIVE - CAN ADMIT] - Time spent managing pt's care (in minutes): 45
[2024-11-15] MEDS: CYCLOBENZAPRINE 10 MG TAB PO PRN (12:06)
[2024-11-15 12:38] VITALS: BP 96/46; TEMP 98.3
[2024-11-15 14:36] VITALS: O2SAT 99
== END 2024-11-15 14:21 | disposition home health service (06) ==
LOC: OR 06:00 → 2ND 09:00 → OR 11-15 14:21
PROVIDERS: ATTEND Orthopaedic Surgery
PROC: 0SRB0JA Replacement of Left Hip Joint with Synthetic Substitute, Uncemented, Open Approach (ICD-10-PCS; principal; 2024-11-14 07:00)
DX: M16.12 Unilateral primary osteoarthritis, left hip (principal); M25.552 Pain in left hip; J44.9 Chronic obstructive pulmonary disease, unspecified; F41.9 Anxiety disorder, unspecified; M79.7 Fibromyalgia
CPT/HCPCS: 85025; 81001; 36415; 88304; 88311; 80069; 85018 ×2; 85014 ×2; 73501; 97110; 97116 ×3; 97161; 97530 ×2; 94760 ×2; 27130; C1776 ×3; J2704; J1200; J2003; J1650; J2250; J3010; J1100; J2405; J7120 ×2; J7030 ×2; J0690 ×3; 88305; J0171; J3475

== ENCOUNTER 2025-01-02 08:54 | Day surgery (SDC) | payer OTHER ==
[2025-01-02] MEDS: Ringers Lactate 1,000 ML IV ONE (09:20)
[2025-01-02] MEDS ORDERED: propofoL 200 MG/20 ML VIAL IV ONE (10:55)
[2025-01-02] MEDS ORDERED: FENTANYL CITR 100 MCG/2 ML ONE ×2 (10:55→12:04)
[2025-01-02] MEDS ORDERED: LIDOCAINE 2% MPF 5 ML VIAL ONE (10:56)
[2025-01-02] MEDS ORDERED: MIDAZOLAM HCL 2 MG/2 ML INJ ONE (10:56)
[2025-01-02] MEDS ORDERED: ROCURONIUM 50 MG/5 ML VIAL IV ONE (10:58)
--- NOTE | 2025-01-02 11:08 | RAD REPORT ---
PROCEDURE: Lymphoscintigraphy of the right breast HISTORY: C50.911 AGENT: 242 uCi of Lymphoseek at 932 am TECHNIQUE: The breast was prepped with alcohol in the periareolar region. The radiopharmaceutical was injected p eriareolar region both laterally and medially. Immediate imaging shows good radiopharmaceutical localization. Radiotracer uptake present within the right axillary nodes. IMPRESSION: Technically successful right lymphoscintigraphy injections as detailed.
[2025-01-02] MEDS: METHYLENE BLUE 1% 10 ML VIAL ONE (11:35)
[2025-01-02] MEDS: CEFAZOLIN SODIUM 2 GM/VIAL ONE (11:39)
[2025-01-02] MEDS ORDERED: ONDANSETRON 4 MG/2 ML VIAL ONE (11:57)
[2025-01-02] MEDS ORDERED: dexAMETHasone 4 MG/ML VIAL ONE (11:58)
[2025-01-02] MEDS ORDERED: GLYCOPYRROLATE 0.2 MG/ML SYR ONE (11:59)
[2025-01-02] MEDS: LIDOCAINE HCL/EPINEPHRINE 20 ML MDV ONE (12:04)
[2025-01-02] MEDS ORDERED: MORPHINE 10 MG/ML VIAL ONE (12:13)
[2025-01-02] MEDS ORDERED: KETAMINE HCL IN 0.9 % NACL 50 MG/5 ML SYRINGE IV ONE (12:14)
--- NOTE | 2025-01-02 13:33 | P.OP ---
Preoperative diagnosis: RIGHT Breast Cancer Postoperative diagnosis: RIGHT Breast Cancer Primary procedure: RIGHT Simple Mastectomy with Senintel Lymph Node Biopsy Anesthesia: GETA + Local Estimated blood loss: 10cc Specimen: RIGHT Breast, Dunlap Lymph Node Findings: Negative [place] Lymph Node Complications: None Drain(s): LUANNE drain (10mm Flat) Transferred to: Recovery Room Condition: Good
[2025-01-02] MEDS ORDERED: Ringers Lactate 1,000 ML IV ONE (14:00)
[2025-01-02] MEDS: MIDAZOLAM HCL 2 MG/2 ML INJ ONE (14:15)
[2025-01-02] MEDS ORDERED: ALBUTEROL 2.5 MG/3 ML NEB SOL ONE (15:01)
[2025-01-02 15:24] VITALS: O2SAT 93
[2025-01-02] MEDS: HYDROCODONE/APAP 5/325 MG TAB ONE (15:55)
[2025-01-02 16:40] VITALS: BP 117/69
[2025-01-02 16:41] VITALS: TEMP 98
--- NOTE | 2025-01-03 00:45 | OP ---
Surgeon: Jamison Luna MD, Preoperative Diagnosis: Right breast cancer. Postoperative Diagnosis: Right breast cancer. Procedure Performed: Right simple mastectomy with sentinel lymph node biopsy. Anesthesia: General endotracheal plus local, 1% lidocaine with epinephrine. Estimated Blood Loss: 10 cc. Specimens: 1. Right breast. 2. Dow[place] lymph node. Findings: [place] lymph node negative on frozen section for any evidence of metastatic disease. Complications: None. Drains: A 10 mm flat LUANNE drain placed in the right breast pocket. Disposition: The patient was transferred to recovery room in good condition. Procedure In Detail: After informed consent was obtained, the patient was brought to the operating r oom, prepped and draped in the usual sterile fashion. After adequate anesthesia was achieved, I susan rcated all the landmarks of the breast examination including the inframammary crease, midline clavicu lar fold, doorway to the axilla/lateral pec major border latissimus and the hairline of the axilla. At this point, I made an elliptical incision around the right breast nipple-areolar complex heading s uperiorly to include the skin overlying the mass, making an elliptical type incision after appropriat rosalio anesthetizing the skin with a 10 blade and ultimately dissecting down using electrocautery, I dev eloped the superior flap first using electrocautery ultimately making my way to the border of the cla vicle. I then moved medially approximately 1.5 cm from the midline of the sternal border. I then de veloped the inframammary lower flap down to the inframammary crease of the rectus muscle border. I t hen came around laterally to include the axillary tail and then removed the breast from this area inc luding the prepectoral fascia. This was ultimately passed off for pathologic examination after a sti tch was placed short superior, long lateral. At this point, the specimen was sent off for pathologic examination and permanent previous to any incisions, markers were taken for sentinel lymph node biop sy mapping using the gamma probe. I then probed the axilla and found the area of pus concentration. I made the counter incision in this area after appropriately anesthetizing skin, dissected down to e xpose the blue obvious sentinel lymph node. The counts were recorded in vivo and ex vivo. Clips we re placed on all the feeding lymph nodes channels. This was ultimately clipped between Metzenbaum sc issors and sent off for pathologic examination. At this point, frozen section was performed. I irri gated the cavity at this point and the pathologist confirmed that there was no evidence of metastatic disease on frozen section and the axillary lymph node was read as officially negative for any cancer . At this point, both skin incisions were copiously irrigated. I placed a 10 mm flat LUANNE drain throu gh a separate stab incision at the breast at the inframammary region and secured it with a 3-0 nylon suture. After the area was inspected, no additional hemostatic maneuvers were required. Then, both incisions were closed using a combination of deep dermal 3-0 Vicryl sutures in an interrupted fashion and the skin was closed with a 4-0 Monocryl in a running fashion on both incisions and Dermabond was placed over top. The patient tolerated the procedure well without incident or complication and lebron sferred to PACU in good condition. All counts were correct at the end of the case. DANIEL/MONTSE Voice ID: [id number] Report ID: [id number]
== END 2025-01-02 16:25 | disposition home or self-care (01) ==
LOC: OR 08:54
PROVIDERS: ATTEND Surgery
PROC: 07B50ZX Excision of Right Axillary Lymphatic, Open Approach, Diagnostic (ICD-10-PCS; 2025-01-02)
PROC: 0HBT0ZZ Excision of Right Breast, Open Approach (ICD-10-PCS; principal; 2025-01-02 12:00)
DX: C50.811 Malignant neoplasm of overlapping sites of right female breast (principal); Z17.0 Estrogen receptor positive status [ER+]; Z17.32 Human epidermal growth factor receptor 2 negative status
CPT/HCPCS: 19303; 38500; 88307 ×2; 88333; 78195; J2704; J1100; J7613; J2003; J2250 ×2; J3010 ×2; J2405; J7120 ×2; A9520; 88309